=== PATIENT | female | born 1940 | race Caucasian/White ===

== ENCOUNTER 2018-07-12 04:21 | Inpatient (IN) ==
[2018-07-12] MEDS ORDERED: MORPHINE IV ONE (05:44)
[2018-07-12] MEDS ORDERED: NS IV ONE (05:44)
[2018-07-12] MEDS ORDERED: ZOVIRAX IV ONE (05:44)
--- NOTE | 2018-07-12 05:50 | PROVIDER DOCUMENTATION ---
HPI-General Adult - General Chief Complaint: Generalized Pain Stated Complaint: right side pain Time Seen by Provider: 07/12/18 04:49 Source: patient Allergies/Adverse Reactions: Patient Allergies Allergy/AdvReac Type Severity Reaction Status Date / Time Sulfa (Sulfonamide Allergy Unknown Unknown Verified 03/25/15 15:25 Antibiotics) Home Medications: Home Medication List Medication Instructions Recorded Confirmed Last Taken Type Aspirin 2 tab PO DAILY 07/12/18 07/12/18 Unknown History Cholecalciferol (Vitamin D3) 1 tab PO DAILY 07/12/18 07/12/18 Unknown History [Vitamin D3] Cranberry 1 tab PO DAILY 07/12/18 07/12/18 Unknown History Magnesium 1 tab PO DAILY 07/12/18 07/12/18 Unknown History Melatonin 0.5 - 1 tab PO QHS 07/12/18 07/12/18 Unknown History Methocarbamol [Robaxin] 500 mg PO Q4H 07/12/18 07/12/18 Unknown History Morphine E.r. [Ms Contin] 15 mg PO PRN PRN 07/12/18 07/12/18 Unknown History Nabumetone [Relafen] 500 mg PO Q4H 07/12/18 07/12/18 Unknown History Triamcinolone Acetonide [Nasal 1 spray INH PRN PRN 07/12/18 07/12/18 Unknown History Allergy] Vitamin E 1 tab PO DAILY 07/12/18 07/12/18 Unknown History - History of Present Illness -Gen Adult Nature of Presenting Problems: Pt presents with rash, right flank, x 1 month, radiation to the back, associated with blisters, sharp pain, pt also has chronic pain, back and left shoulder, pt lives alone, according to the son in law pt is no longer able to ambulate and has been dragging herself on the ground, pt denies f/c, kam, cp, sob , cough, ap, n/v/d. Pt is lying in bed in no acute distress. Location of Pain/Injury: reports: abdomen Pain Radiation: reports: back Quality of Pain: reports: sharp Severity: reports: moderate Onset/Duration: reports: other (1 month) Timing: reports: still present Context/Activities at Onset: reports: none Modifying Factors: improves with: nothing Associated Symptoms: reports: denies symptoms Similar Symptoms Previously?: No Recently seen or treated by another doctor?: No Review of Systems - Adult - REVIEW OF SYSTEMS - ADULT Constitutional: reports: no symptoms reported Eyes: reports: no symptoms reported Ears, Nose, Mouth & Throat: reports: no symptoms reported Cardiovascular: reports: no symptoms reported Respiratory: reports: no symptoms reported Gastrointestinal: reports: no symptoms reported Genitourinary: reports: no symptoms reported Musculoskeletal: reports: no symptoms reported Integumentary: reports: see HPI Neurological: reports: no symptoms reported Psychiatric: reports: no symptoms reported Endocrine: reports: no symptoms reported Hematologic/Lymphatic: reports: no symptoms reported Allergic/Immunologic: reports: no symptoms reported All Other Systems: Reviewed and Negative Past History - Adult - PAST MEDICAL HISTORY-ADULT Review of Records: reports: Old Records Reviewed, Nursing Assessment Review, Medications Reviewed, Social history reviewed & non-contributory. Physical Exam-General - PHYSICAL EXAM-ADULT Initial Vital Signs Reviewed: Yes - CONSTITUTIONAL General Appearance: appears well - EYES Eyes: PERRL/EOMI - HEAD, EARS, NOSE, MOUTH & THROAT HENMT: normocephalic/atraumatic - NECK Neck: normal inspection - RESPIRATORY Respiratory: no respiratory distress, no accessory muscle use - CARDIOVASCULAR Cardiovascular: regular rate, rhythm - GASTROINTESTINAL (ABDOMEN) Abdominal Exam: normal bowel sounds - LYMPHATIC Lymphatic: no adenopathy - MUSCULOSKELETAL Extremity: normal range of motion - SKIN Integumentary: zoster-like rash (right flank, with cellulitis) - NEUROLOGIC Neurologic: floor installer II-XII nml as tested - PSYCHIATRIC Psych/Mental Status: normal mood/affect Progress - PLAN OF CARE/RESULTS Progress/Plan/Lab Results: Vital Signs - 8 hr 07/12/18 04:32 07/12/18 04:33 07/12/18 04:49 Temperature 98.5 F Pulse Rate 91 H 82 Respiratory Rate 11 L 18 Blood Pressure 155/83 155/83 O2 Sat by Pulse Oximetry 87 L 90 L 93 L Orders Category Date Time Status cxr [CHEST-1 VIEW] [RAD] Stat Exams 07/12/18 05:44 Ordered BLOOD CULTURE [BLDCUL] Stat Lab 07/12/18 05:41 Uncollected CBC WITH ELECTRONIC DIFF [HEME] Stat Lab 07/12/18 05:41 Uncollected CK TOTAL [CHEM] Stat Lab 07/12/18 05:41 Uncollected COMPREHENSIVE METABOLIC PANEL [CHEM] Stat Lab 07/12/18 05:41 Uncollected PRO B-NATRIURETIC PEPTIDE Stat Lab 07/12/18 05:41 Uncollected TROPONIN T Stat Lab 07/12/18 05:41 Uncollected UA [URINALYSIS] [URINALYSIS] Stat Lab 07/12/18 05:41 Uncollected Acyclovir [Zovirax] 800 mg Med 07/12/18 05:44 Ordered 0.9% Sodium Chloride Inj [Ns] 150 ml IV NOW Morphine Med 07/12/18 05:44 Once 4 mg IV NOW ONE Result Diagrams: 07/12/18 05:20 07/12/18 05:20 - REASSESSMENT Reassessment #1 Time Reassessed: 07:00 Status: other (Assumed care of this patient at shift change from Dr. Oliva. Labs and dispo pending at this time.) - CONSULTS/PCP/HOSPITALIST Notification #1 *Consult/PCP/Hospitalist*: Dr. Estes Time Discussed: 08:46 Consult Disposition: Admit - CHANGE OF SHIFT REPORT (ED Provider) 1 Report Given and Care Transferred to:: Dr. Oconnor Time of Transfer: 07:00 Departure - Departure Date of Disposition Decision: 07/12/18 Time of Disposition Decision: 08:46 DIAGNOSIS: Shingles outbreak Qualifiers: Herpes zoster complications: unspecified herpes zoster complication Qualified Code(s): B02.8 - Zoster with other complications Cellulitis Qualifiers: Site of cellulitis: trunk Site of cellulitis of trunk: unspecified site Qualified Code(s): L03.319 - Cellulitis of trunk, unspecified Disposition: ADMITTED INPATIENT 09 Certified Medical Emergency: Emergent Condition: Stable Referrals and Follow-Ups: None,PCP [NON-STAFF PROVIDER] - - Critical Care Note This patient required my direct & personal management of CC.: No Attestation - Physician/ PATRICIA Attestation Patient care was provided by Advanced Practice Provider:: No The physician spent face to face time with patient:: Yes Advanced Practice Provider documentation review:: Supervising physician onsite and consulted in the evaluation and care of this patient. The physician did have a face to face encounter with the patient.
[2018-07-12 06:05] LABS: BASO# 0.06 X1000 (0.0-0.2); BASO% 1.1 % (0.0-0.8); EOS# 0.14 X1000 (0.0-0.7); EOS% 2.6 % (0.0-10.0); HEMATOCRIT 48.8 % (37.0-47.0); HEMOGLOBIN 15.4 g/dL (12.0-16.0); LYMPH# 0.78 X1000 (1.2-3.4); LYMPH% 14.2 % (20.5-51.1); MCH 28.2 PG (27-31); MCHC 31.6 g/dL (33-37); MCV 89.4 FL (81-99); MONO% 12.8 % (1.7-9.3); MPV 11.2 FL (7.4-10.4); NEUT# 3.81 X1000 (1.4-6.5); NEUT% 69.3 % (42.2-75.2); PLT 216 X1000 (130-400); RBC 5.46 XMIL (4.2-5.4); RDW 15.1 % (11.5-14.5); WBC 5.49 X1000 (4.8-10.8)
[2018-07-12] MEDS ORDERED: VANCOMYCIN 1 GM/NS 1 GM/250 ML IVPB IV ONE (06:33)
[2018-07-12 06:47] LABS: ALB/GLOB RATIO 0.9; ALBUMIN 3.4 g/dL (3.5-5.0); CALCIUM 9.3 mg/dL (8.8-10.2); POTASSIUM 4.1 mmol/L (3.5-5.1); TOTAL BILIRUBIN 0.33 mg/dL (0.20-1.00); TOTAL PROTEIN 7.2 g/dL (6.3-8.3)
--- NOTE | 2018-07-12 07:40 | Diag Imaging Result Doc PS360 ---
EXAM: CHEST-1 VIEW INDICATION: chest pain TECHNIQUE: One view COMPARISON: 03/25/2015 FINDINGS: Inspiration is suboptimal. There is suggestion of mild subsegmental atelectasis at the lung bases. Central vasculature appears mildly prominent suggesting minimal pulmonary venous congestion. The lungs are grossly clear, otherwise. There is no discrete pleural fluid collection or pneumothorax. The cardiac silhouette is unremarkable. IMPRESSION: Suggestion of mild pulmonary venous congestion. Electronically signed by Ankit Guerrero 07/12/2018 7:37 AM
[2018-07-12] MEDS ORDERED: MORPHINE IM ONE (07:55)
[2018-07-12] MEDS ORDERED: LASIX IV ONE ×2 (08:51→08:52)
[2018-07-12] MEDS ORDERED: DILAUDID IV ONE (09:30)
[2018-07-12] MEDS ORDERED: VANCOMYCIN IV PER PHARMACY MISC SCH (09:30)
[2018-07-12] MEDS ORDERED: XYLOCAINE 5% OINT TOP ONE (09:35)
[2018-07-12] MEDS ORDERED: TYLENOL PO PRN (09:42)
[2018-07-12] MEDS ORDERED: ZOFRAN IV PRN (09:42)
[2018-07-12] MEDS ORDERED: FLONASE NAS PRN (09:47)
[2018-07-12] MEDS: PREDNISONE PO SCH (11:55)
[2018-07-12 13:08] LABS: URINE SOURCE CATH
[2018-07-12 13:16] LABS: BILIRUBIN URINE NEGATIVE (NEGATIVE); BLOOD URINE NEGATIVE (NEGATIVE); COLOR YELLOW; GLUCOSE URINE NEGATIVE (NEGATIVE); KETONE URINE NEGATIVE (NEGATIVE); LEUKOCYTES URINE NEGATIVE (NEGATIVE); NITRITE URINE NEGATIVE (NEGATIVE); PH URINE 6.5; PROTEIN URINE NEGATIVE (NEGATIVE); SP GRAVITY URINE 1.006; TURBIDITY URINE CLEAR (CLEAR); UROBILINOGEN URINE NORMAL (NORMAL)
[2018-07-12 13:17] LABS: UR EPITHELIAL CELLS <10 /HPF (<10); URINE BACTERIA NEGATIVE /HPF; URINE RBC <10 /HPF (<10); URINE WBC <10 /HPF (<10)
[2018-07-12] MEDS: DILAUDID IV PRN ×3 (13:17→22:11)
[2018-07-12] MEDS: NEURONTIN PO SCH ×2 (13:18→18:40)
[2018-07-12] MEDS: MS CONTIN PO PRN (13:18)
[2018-07-12] MEDS: ROBAXIN PO PRN ×3 (13:18→22:10)
[2018-07-12] MEDS ORDERED: KEFLEX PO SCH (13:30)
[2018-07-12] MEDS ORDERED: NS IV SCH (14:00)
[2018-07-12] MEDS ORDERED: ZOVIRAX IV SCH (14:00)
--- NOTE | 2018-07-12 14:12 | HISTORY AND PHYSICAL ---
PRIMARY CARE PHYSICIAN: No one. CHIEF COMPLAINT: Rash on right side of flank area to back all the way to the groin with blisters. HISTORY OF PRESENT ILLNESS: Ms. Candy Lockhart is a 78-year-old female with a medical history of pulmonary emboli in the past which she was on Warfarin for, but she has not had this for a long time, history of right calf wound that was infected at some point, healed up. She denies hypertension or chronic constipation. She has chronic osteoarthritis. She does have chronic pain. Very morbidly obese. Now presents with a 1-month complaint of blisters that follow the pattern of shingles. She states she had the chicken pox back in her third grade year of elementary school. She states that she has been under a lot of stress. Her daughter does help her around the house. She is wheelchair bound essentially. Very, very slow to get around. But she has had these blisters for at least a month. Apparently the daughter has been trying to get her to come and get her some medical assistance, but the patient states that something at home would always come up, and she would not come. Now the pain is so severe, it is almost unbearable. The site is very red and raw, and there are several, several bullae type blisters that are open, some still closed. Very painful. Very weepy. A large area of her back, right flank, all the way down even into the abdominal fold. She states that this has been going on for at least a month. She has had some nausea here and there. Denies any fever. She claims that she has also had like a yeast type rash underneath her folds for a couple of months. Otherwise, she has no other complaints. She is going to be started on treatment for her herpes zoster. We are going to consult Dr. Chua due to the severity of the infection. We will try to culture the wounds. She also appears to have almost a cellulitis in the bilateral lower extremities as well. We will get her a private room for droplet and contact isolation. PAST MEDICAL HISTORY: 1. Chronic back and knee pain which she currently is denying. 2. Denies hypertension. 3. Denies chronic constipation, although these are listed on her old medical record. 4. She does have chronic osteoarthritis. 5. History of pulmonary emboli, was on Coumadin therapy. I am not sure how long she has been off of it but she says for a while. 6. History of right calf lower extremity infection. Apparently it almost required amputation, but antibiotics healed it. It is unknown what kind of infection it may have been or bacteria. 7. GERD. 8. Morbid obesity. PAST SURGICAL HISTORY: 1. Bilateral knee replacement. 2. LASIK surgery on her eyes. 3. Bilateral tubal ligation. 4. Five back surgeries with rods. SOCIAL HISTORY: Quit smoking 15 years ago, but she had started in her late teens, never more than a half a pack per day. Denies alcohol or illicit drug use. She does live at home alone and is wheelchair bound. Her daughter does help. She does not have any home health or sitters that help her. FAMILY HISTORY: Mother had breast cancer. Father had heart attack. ALLERGIES: Sulfa. HOME MEDICATIONS: 1. Melatonin 0.5 mg to 1 mg p.o. nightly at bedtime. 2. Aspirin 81 mg 2 tablets p.o. daily. 3. Vitamin D3 1000 units p.o. daily. 4. Cranberry supplement 400 mg p.o. daily. 5. Magnesium 30 mg p.o. daily. 6. Robaxin listed as 500 mg p.o. every 4 hours scheduled. It was changed to p.r.n. 7. Morphine extended release or MS Contin 15 mg p.o. daily p.r.n. 8. Relafen 500 mg p.o. every 4 hours, and I changed that to t.i.d. as well. 9. Triamcinolone acetonide nasal allergy medicine nasal p.r.n. 10.Vitamin E 1000 units p.o. daily. REVIEW OF SYSTEMS: A 14-point review of systems are complete, and all are negative except for those mentioned in the above HPI. The pain is just significantly severe with open blisters. She has cloth in between the folds where it has blistered the most. PHYSICAL EXAMINATION: VITAL SIGNS: Temperature 98.5, heart rate 80, respiratory rate 13, blood pressure 146/89, O2 saturation is 92%. GENERAL: Ms. Candy Lockhart is a 78-year-old female. She is in no acute distress. She is able to answer questions appropriately. HEENT: Atraumatic and normocephalic. Pupils are equal, round and reactive to light. Extraocular movements were intact. NECK: Trachea midline. CARDIOVASCULAR: S1, S2. Regular rate and rhythm. No rubs, gallops or murmurs. She has plus 1 lower extremity pitting edema, but she is quite swollen in the lower extremities with old skin, very dry, red. Feet are cool. Trace pulses, bilateral dorsalis pedal pulses, +2 radial pulses. Unable to assess for JVD due to body habitus. Negative for carotid bruits. PULMONARY: Clear to auscultation with bilateral breath sounds. No accessory muscle use or work of breathing noted except for activity. Tolerating nasal cannula. GASTROINTESTINAL: Soft, nontender. Just obese. Nondistended. Positive bowel sounds x4. EXTREMITIES: Decreased range of motion. Decreased strength. All equal. NEUROLOGICAL: Oriented x3. Follows commands. Decrease in strength in the lower extremities. SKIN: Several, several blisters throughout the flank, into the right groin and abdominal folds and into the right back area with open blisters, closed blisters, weeping, red, hot, painful. Also with some yeast type appearance underneath the left side of her breast folds and under folds of her abdomen and groin. She has little healing open wound on the left bradley with red lower extremities that are cool and very dry lower extremities, very thick callus-like skin throughout the lower extremities. DIAGNOSTIC DATA: White blood cells 5000, hemoglobin 15, hematocrit 48, platelet count 216. Sodium is 138, potassium 4.1, BUN is 16, creatinine 1.0, glucose 96, calcium 9.3, bilirubin 0.33, AST is 17, ALT is 9. CK is 35. Troponin less than 0.01. ProBNP is 1605. Albumin 3.4. Serum lactate 0.7. IMAGING: Chest x-ray with suggestion of mild pulmonary venous congestion. ASSESSMENT AND PLAN: 1. Severe shingles along the right flank and into the groin, etc., with several open and closed blisters draining. She is placed on droplet and contact isolation for this. We will start her on weight based prednisone for 5 days, ideal body weight, so it is 60 mg once a day for 5 days along with ideal body weight based acyclovir which is 700 mg every 8 hours for 7 days. Given the severity of it, we will consult Dr. Chua. It does appear that there is a good chance there is a bacterial infection with it as well, so we will start her on vancomycin. We will culture the site. 2. Given that this has been going on for so long likely with postherpetic neuralgia, we will go ahead and do Neurontin 100 mg p.o. t.i.d., lidocaine topical ointment, Dilaudid 0.5 mg IV q.3 hours, the morphine MS Contin 15 mg p.o. daily as needed that she takes at home, and [place] 7.5 one to 2 tablets every 4 hours p.r.n. for pain. 3. Possible lower extremity cellulitis versus chronic inflammation in the lower extremities, but she is going to be on vancomycin. 4. Morbid obesity. 5. Elevated ProBNP with some pulmonary venous congestion on the chest x-ray, so we will get an echocardiogram to evaluate for congestive heart failure and also give her a one-time low dose 20 of Lasix. She does have lower extremity edema as well. 6. Continue with proton pump inhibitor of Prilosec. 7. DVT prophylaxis. Currently she is just on aspirin. We will hold off on anything on the legs. Dictated by JIMI Segundo for Ashkan Estes MD cc: JMII Segundo MD
--- NOTE | 2018-07-12 14:25 | INFECTIOUS DISEASE CONSULT REP ---
DATE: 07/12/2018 CONCLUSION: The patient is admitted to the hospital with shingles and a right-sided abdominal wall dermatome. There may be a secondary bacterial infection. RECOMMENDATIONS: I have substituted p.o. Valtrex for IV acyclovir and p.o. Keflex for IV vancomycin. DISCUSSION: The patient told me that she has been having pain in the right lower abdominal wall dermatome. She did not break out in a rash until approximately 1 to 2 weeks ago. She says that she told me that the rash is very painful. Her laboratory studies show a CBC with a white count of 5490, hemoglobin 15.4 and platelet count 216,000. Creatinine is 1. GFR is 54. Chest x-ray shows pulmonary venous congestion. Blood cultures and culture from the patient's right abdominal wall dermatome are pending. Urinalysis showed no white cells or bacteria. Liver function studies are normal. PAST MEDICAL HISTORY/REVIEW OF SYSTEMS: Eyes and ears: She can hear okay, but she does need glasses for vision. Neck: No stiffness. Respiratory: No cough or shortness of breath. Cardiac: No chest pain or palpitations. GI: No nausea, vomiting, or diarrhea. Genitourinary: No dysuria or flank pain. Endocrine: The patient does not have diabetes or thyroid disease. Neurologic: No seizures. No loss of motor or sensory function. Integument: See present illness. GENERAL CLAIMS AGENT HISTORY: She is a 2, para 2, AB 0. She has had a tubal ligation. PREVIOUS HOSPITALIZATIONS AND OPERATIONS: She has had labor and deliveries, a tubal ligation, laminectomy at which time Lawrence rods were installed, bilateral total knee arthroplasties, and the patient has also had eye surgery. MEDICAL DISEASES: Negative for diabetes mellitus and hypertension. INFECTIOUS DISEASE HISTORY: Positive for UTI. FAMILY HISTORY: Positive for cancer and myocardial infarction. SOCIAL HISTORY: The patient lives in [place]. She is a . She lives alone. The patient does not smoke cigarettes, drink alcoholic beverages or abuse drugs. ALLERGIES: She is allergic to sulfa. HOME MEDICATIONS: Include vitamins, minerals, Robaxin, morphine, Relafen. PHYSICAL EXAMINATION: Vital Signs: Temperature is 97.9 degrees, pulse 97, respirations 20, blood pressure 137/55. Patient is 5 feet 8 inches tall, weighs 291 pounds. General: This is an obese, elderly female. She is having pain in the right abdominal wall dermatome. Head, eyes, ears, nose, and throat: She can hear my spoken words and see near objects. There is no drainage coming from the nose or ears. Neck: No meningismus. Lungs: Clear to auscultation. Cardiovascular: Heart rate is regular. Abdomen: Soft and nontender. Integument: As mentioned above, patient has in the right abdominal wall dermatome an erythematous rash with vesicles and some bullae. Neurologic: Patient is awake. She can move her extremities. There is no tremor. Her sensation is intact to touch. Her memory as regarding her medical history seems intact. Thank you for the consult. cc: Jayden Chua MD
[2018-07-12] MEDS: VALTREX PO SCH ×2 (14:42→22:10)
[2018-07-12] MEDS: KEFLEX PO SCH ×2 (14:42→22:10)
--- NOTE | 2018-07-12 14:44 | PROGRESS NOTE ---
DATE: 07/12/2018 SUBJECTIVE: This is a [id number] encounter. A 78-year-old female admitted to the hospital because of a rash which she has had on her right flank region. She indicates the lesions have been present for close to about 1month. She is afebrile. On examination, She has erythematous lesion left flank with some blistering noted . I do agree with the plan of maintaining patient on anti viral agent. Infectious Disease has been consulted as well. cc: Ashkan Estes MD MTDD
[2018-07-12] MEDS: XYLOCAINE 5% OINT TOP SCH ×2 (17:48→18:40)
[2018-07-12] MEDS: MELATONIN PO SCH (22:10)
[2018-07-13] MEDS: RELAFEN PO SCH ×3 (04:00→23:25)
[2018-07-13] MEDS: ROBAXIN PO PRN ×4 (04:34→18:01)
[2018-07-13] MEDS: VALTREX PO SCH ×4 (04:34→23:25)
[2018-07-13] MEDS: PRILOSEC PO SCH ×2 (04:34→06:10)
[2018-07-13] MEDS: KEFLEX PO SCH ×3 (04:34→14:19)
[2018-07-13] MEDS: DILAUDID IV PRN ×4 (04:35→18:48)
[2018-07-13] MEDS: NORCO-7.5 PO PRN ×4 (06:17→18:00)
--- NOTE | 2018-07-13 07:04 | ECHO REPORT ---
ORDER DATE: 07/12/2018 INDICATIONS: Suspected congestive heart failure. The study is limited due to the patient's poor cooperation. Only parasternal views and subcostal views are available. M-MODE MEASUREMENTS: Left ventricle outflow tract: 2.3 cm. Aortic diameter: 2.9 cm. The wall thickness of the left ventricle cannot really be evaluated adequately. SUMMARY OF 2-DIMENSIONAL IMAGIN. There is no pericardial effusion. 2. The aortic valve opens normally. Color flow mapping unremarkable. 3. The left atrium appears to be mildly enlarged. 4. The mitral valve opens normally. 5. The Doppler evaluation of the mitral valve is very limited. 6. The global left ventricular systolic function is probably normal. Ejection fraction is estimated to be on the order of 60%-65%, although there was no adequate full evaluation of the wall motion. 7. The pulmonic valve appears to be grossly normal. 8. The tricuspid valve shows mild degree of regurgitation. 9. Pulmonary pressure appears to be elevated at 41 mmHg. 10.There is no evidence of mass. There is no thrombus. SUMMARY: In summary, this limited echocardiogram shows: 1. Probably normal left ventricular systolic function. 2. No evidence of aortic stenosis or any significant degree of mitral regurgitation. 3. Pulmonary pressure estimated at 41 mmHg. 4. No pericardial effusion, mass, and no thrombus. 5. There is no evidence of significant degree of left ventricular hypertrophy. The best measurement of the wall thickness is about 1.2 cm which would be consistent with mild degree of left ventricular hypertrophy. The left atrium appears to be moderately enlarged. Clinical correlation recommended. Please repeat this study when the patient is able to cooperate. cc: MD Shruthi Loera CRNP
[2018-07-13 07:18] LABS: BASO# 0.05 X1000 (0.0-0.2); BASO% 1.1 % (0.0-0.8); EOS# 0.01 X1000 (0.0-0.7); EOS% 0.2 % (0.0-10.0); HEMATOCRIT 48.1 % (37.0-47.0); IMM GRAN# 0.03 X1000 (0.0-0.04); IMM GRAN% 0.6 % (0.0-0.5); LYMPH# 1.06 X1000 (1.2-3.4); LYMPH% 22.8 % (20.5-51.1); MCHC 31.2 g/dL (33-37); MCV 89.9 FL (81-99); MONO# 0.71 X1000 (0.11-0.59); MONO% 15.3 % (1.7-9.3); MPV 11.2 FL (7.4-10.4); NEUT# 2.78 X1000 (1.4-6.5); PLT 182 X1000 (130-400); RBC 5.35 XMIL (4.2-5.4); RDW 15.1 % (11.5-14.5); WBC 4.64 X1000 (4.8-10.8)
[2018-07-13 07:25] LABS: INR 0.99; PROTIME 13.9 Seconds (11.0-16.0)
[2018-07-13 07:26] LABS: PTT 31.3 Seconds (22.3-41.8)
[2018-07-13 07:39] LABS: ALB/GLOB RATIO 0.9; ALBUMIN 3.3 g/dL (3.5-5.0); MAGNESIUM 1.9 mg/dL (1.5-2.7); POTASSIUM 4.2 mmol/L (3.5-5.1); TOTAL BILIRUBIN 0.41 mg/dL (0.20-1.00); TOTAL PROTEIN 6.8 g/dL (6.3-8.3)
[2018-07-13] MEDS: MS CONTIN PO PRN (08:48)
[2018-07-13] MEDS: SLOW-MAG PO SCH (08:49)
[2018-07-13] MEDS: VITAMIN E PO SCH (08:49)
[2018-07-13] MEDS: ASPIRIN PO SCH (08:50)
[2018-07-13] MEDS: VITAMIN D PO SCH (08:50)
[2018-07-13] MEDS: PREDNISONE PO SCH (08:50)
[2018-07-13] MEDS: PATIENT'S OWN MED PO SCH (08:51)
[2018-07-13] MEDS: XYLOCAINE 5% OINT TOP SCH ×3 (08:51→18:02)
[2018-07-13] MEDS: NEURONTIN PO SCH ×3 (08:51→18:01)
--- NOTE | 2018-07-13 17:25 | INFECTIOUS DISEASE PROGRESS NO ---
DATE: 07/13/2018 PRESENT ILLNESS: The patient has shingles involving the right-sided abdominal wall. It is complicated by infection with a gram-negative vaughn bacterial organism. MEDICATIONS: Currently, the patient is on Valtrex and Keflex. PHYSICAL EXAMINATION: Vital Signs: Temperature is 97.8, pulse 87, respirations 12, blood pressure 150/65. Generally: This is an ill-appearing elderly female. She is in no acute distress. HEENT: She can hear my spoken words and see near objects. She does not have any white patches on her tongue. Lungs: Clear to auscultation. Cardiovascular: Regular heart rate. Abdomen: Soft and not tender on the lateral abdominal wall dermatome. There is erythema in a dermatome distribution with vesicles. Neurologic: Patient is awake. She can move her extremities. There is no tremor. LAB AND X-RAY: There is no new radiographic study today. The CBC for today shows a white count of 4640, hemoglobin 15, platelet count of 182,000. Creatinine is 1, GFR is 54. Liver function studies are normal. Urinalysis shows no white cells or bacteria. Abdominal culture is growing a gram-negative vaughn. ASSESSMENT AND PLAN: Patient has shingles complicated by a gram-negative vaughn bacterial super infection. My plan is to continue Valtrex and I have substituted Levaquin for Keflex. COMORBIDITIES: She is elderly. Also, she is obese. cc: Jayden Chua MD
[2018-07-13] MEDS: LEVAQUIN PO SCH (18:01)
--- NOTE | 2018-07-13 19:02 | PROGRESS NOTE ---
DATE: 07/13/2018 SUBJECTIVE: Patient resting comfortable in bed. She feels much better today. OBJECTIVE: Vital signs: Temperature 97.8 degrees, pulse 87, blood pressure 150/65, oxygen saturation is 92%. HEENT: Atraumatic, normocephalic. Cardiovascular: S1, S2. Respiratory: Has evidence of good entry bilaterally. Abdomen: Soft, nontender. She does have an area of erythema as well as blister formation over a dermatome on the right lower aspect of the abdomen as well as the right flank region. Extremities: Has evidence of edema. CENTRAL NERVOUS SYSTEM: No obvious focal deficit noted. LABS: WBC is 4.64, hematocrit is 48.1 with a platelet count of 182,000, sodium is 139, potassium 4.2, chloride is 103, bicarb 23, BUN 16, creatinine is 1.0. ASSESSMENT AND PLAN: 1. Herpes zoster infection. Continue Valtrex. Note optimize pain control. 2. Possible lower extremity cellulitis. Continue antibiotics. 3. Morbid obesity. Patient will need to be on a low calorie diet. 4. Acute diastolic heart failure. Monitor I's and O's as well as daily weights, maintain patient on diuretics. 5. Gastrointestinal prophylaxis PPI. 6. Deep vein thrombosis prophylaxis Lovenox. cc: Ashkan Estes MD
[2018-07-13] MEDS: MELATONIN PO SCH (23:24)
[2018-07-14] MEDS: VALTREX PO SCH ×3 (06:31→22:10)
[2018-07-14] MEDS: PRILOSEC PO SCH (06:31)
[2018-07-14] MEDS: NORCO-7.5 PO PRN (07:15)
[2018-07-14 07:42] LABS: ALBUMIN 3.3 g/dL (3.5-5.0); CALCIUM 8.5 mg/dL (8.8-10.2); TOTAL BILIRUBIN 0.36 mg/dL (0.20-1.00); TOTAL PROTEIN 6.7 g/dL (6.3-8.3)
[2018-07-14] MEDS: LEVAQUIN PO SCH (09:42)
[2018-07-14] MEDS: LASIX IV SCH (09:42)
[2018-07-14] MEDS: PREDNISONE PO SCH (09:42)
[2018-07-14] MEDS: LOVENOX SUBQ SCH (09:42)
[2018-07-14] MEDS: VITAMIN D PO SCH (09:43)
[2018-07-14] MEDS: ASPIRIN PO SCH (09:43)
[2018-07-14] MEDS: SLOW-MAG PO SCH (09:44)
[2018-07-14] MEDS: NEURONTIN PO SCH ×3 (09:44→22:11)
[2018-07-14] MEDS: PATIENT'S OWN MED PO SCH (09:51)
[2018-07-14] MEDS: DILAUDID IV PRN ×3 (10:07→22:13)
[2018-07-14] MEDS: RELAFEN PO SCH ×2 (10:08→22:14)
[2018-07-14] MEDS: XYLOCAINE 5% OINT TOP SCH ×3 (10:08→22:19)
--- NOTE | 2018-07-14 11:39 | PROGRESS NOTE ---
DATE: 07/14/2018 SUBJECTIVE: Patient resting comfortably in bed. She is feeling a little bit better, but she is complaining of shortness of breath. The pain is controlled. We will continue with the same management. OBJECTIVE: Vital Signs: Temperature 98.9 degrees, pulse 72, respiratory rate 18, blood pressure 121/72, oxygen saturation 96% on 2 L of nasal cannula. HEENT: Head normocephalic. No trauma. PERRLA. Neck: Supple. No JVD. No masses. Central trachea. Chest: Clear to auscultation. No wheezing. No rales. Abdomen: Soft. She does have an area with erythema, blister over a large dermatome on the right side that travels from the anterior abdomen abdominal area all the way to her back. It is painful to palpation and mobilization. Neurological examination: Alert and oriented x3. She does have some lower extremity weakness. Extremities: She has edema and chronic venous stasis at the level of the lower extremities. I do not think this is an infection. LABORATORY: Sodium 141, potassium 4, chloride 105, bicarbonate 25. BUN 21, creatinine 1, glucose 86, calcium 8.5. AST 25, ALT 10, alkaline phosphatase 70, albumin 3.3. ASSESSMENT AND PLAN: 1. Herpes zoster infection/single complicated by gram-negative vaughn bacterial superinfection. Infectious Disease Department on board. We will continue with the same management. She is feeling better. We will continue with the same pain treatment as well. 2. Likely acute diastolic heart failure. We will monitor her ins and outs. Kidney function is stable. Negative urine output of 3 L. Will continue with same management. 3. Morbid obesity. Continue with same management for now. Diet and exercise has been discussed. 4. Gastrointestinal prophylaxis with proton pump inhibitors. 5. Deep vein thrombosis prophylaxis with Lovenox. 6. Possible history of pulmonary embolism before. Apparently she has been on blood thinners some time ago, and they were stopped, and she has been placed on aspirin two tablets daily. For now, we will continue with Lovenox and will monitor. 7. Resuscitation status: This patient is full code. cc: Junito Cee MD
[2018-07-14] MEDS: VITAMIN E PO SCH (13:05)
[2018-07-14] MEDS: MS CONTIN PO PRN (13:05)
--- NOTE | 2018-07-14 14:36 | INFECTIOUS DISEASE PROGRESS NO ---
DATE: 07/14/2018 PRESENT ILLNESS: Ms Lockhart is being treated for a right-sided abdominal dermatome shingles with a superimposed Enterobacter infection. MEDICATIONS: She is receiving Levaquin 500 mg by mouth daily and Valtrex 1000 mg by mouth every 8 hours. PHYSICAL EXAMINATION: Vital Signs: Temperature is 98.9 degrees, pulse rate 72 , respiratory rate 18, blood pressure 121/72, O2 saturation is 96% on 2 L nasal cannula. General: This is an elderly, chronically ill-appearing, morbidly obese female. She is sitting up in bed with mild shortness of breath while talking. Cardiovascular: Heart rate and rhythm regular. NSR on the monitor. Respiratory: Lung sounds are clear to auscultation, diminished in the bases. Abdomen: Soft, obese and tender to the right lateral side in the area of the rash. Bowel sounds are active. Integumentary: There is erythema as well as vesicles to the right, lower, lateral abdominal dermatome. Neurologic : She is awake, alert and oriented. Very talkative and weak with minimal movement to the lower extremities and stronger in the upper extremities bilaterally. LABORATORY AND X-RAY: No CBC today. Her creatinine is 1, GFR 54, total bilirubin 0.36, AST 25, ALT 10, alkaline phosphatase 70. Her abdominal dermatome has grown Enterobacter cloacae complex. Blood cultures have shown no growth for 48 hours. No imaging reports today. ASSESSMENT AND PLAN: Ms Lockhart is being treated for shingles that have been complicated by an Enterobacter superinfection. The plan at this point is to continue the Valtrex and Levaquin as ordered. These plans have been discussed with and recommended by Dr. Chua. COMORBIDITIES: She is elderly and morbidly obese with gastroesophageal reflux disease and osteoarthritis. Dictated by JIMI Garcia for Jayden Chua MD This chart was documented by, JIMI Garcia and accurately reflects the services performed, treatment plan and medical decisions as attested by the providers signature Jayden Chua MD. cc: Jayden Chua MD [facility]
[2018-07-14] MEDS: MELATONIN PO SCH (22:11)
[2018-07-15] MEDS: PRILOSEC PO SCH ×2 (06:27→07:37)
[2018-07-15] MEDS: NORCO-7.5 PO PRN ×2 (06:27→12:53)
[2018-07-15] MEDS: VALTREX PO SCH ×3 (06:27→21:32)
[2018-07-15 07:03] LABS: BASO# 0.01 X1000 (0.0-0.2); BASO% 0.2 % (0.0-0.8); EOS# 0.01 X1000 (0.0-0.7); EOS% 0.2 % (0.0-10.0); HEMOGLOBIN 14.9 g/dL (12.0-16.0); LYMPH# 1.49 X1000 (1.2-3.4); LYMPH% 23.9 % (20.5-51.1); MCHC 31.7 g/dL (33-37); MCV 88.2 FL (81-99); MONO# 0.85 X1000 (0.11-0.59); MONO% 13.6 % (1.7-9.3); MPV 10.9 FL (7.4-10.4); NEUT# 3.87 X1000 (1.4-6.5); NEUT% 62.1 % (42.2-75.2); PLT 222 X1000 (130-400); RBC 5.33 XMIL (4.2-5.4); WBC 6.23 X1000 (4.8-10.8)
[2018-07-15 07:30] LABS: ALB/GLOB RATIO 0.9; ALBUMIN 3.3 g/dL (3.5-5.0); CALCIUM 8.7 mg/dL (8.8-10.2); POTASSIUM 3.8 mmol/L (3.5-5.1); TOTAL BILIRUBIN 0.41 mg/dL (0.20-1.00); TOTAL PROTEIN 6.8 g/dL (6.3-8.3)
[2018-07-15] MEDS: LASIX IV SCH (09:44)
[2018-07-15] MEDS: VITAMIN D PO SCH (09:44)
[2018-07-15] MEDS: SLOW-MAG PO SCH (09:45)
[2018-07-15] MEDS: ASPIRIN PO SCH (09:45)
[2018-07-15] MEDS: RELAFEN PO SCH ×2 (09:45→21:32)
[2018-07-15] MEDS: LEVAQUIN PO SCH (09:45)
[2018-07-15] MEDS: PREDNISONE PO SCH (09:45)
[2018-07-15] MEDS: VITAMIN E PO SCH (09:45)
[2018-07-15] MEDS: XYLOCAINE 5% OINT TOP SCH ×3 (09:46→21:33)
[2018-07-15] MEDS: PATIENT'S OWN MED PO SCH (09:46)
[2018-07-15] MEDS: NEURONTIN PO SCH ×3 (09:48→16:18)
[2018-07-15] MEDS: LOVENOX SUBQ SCH (09:48)
[2018-07-15] MEDS: ROBAXIN PO PRN (10:13)
[2018-07-15] MEDS: MS CONTIN PO PRN (10:13)
--- NOTE | 2018-07-15 11:53 | PROGRESS NOTE ---
DATE: 07/15/2018 SUBJECTIVE: This patient is resting comfortably in bed. She is feeling better but she feels a little bit short of breath. She is still complaining of some pain on her back. We will continue with the same management. OBJECTIVE: Vital Signs: Temperature 99 degrees, pulse 76, respiratory rate 14, blood pressure 154/76, oxygen saturation 96 on 3 L of nasal cannula. HEENT: Head normocephalic. No trauma. PERRLA. Neck: Supple. No JVD. No masses. Central trachea. Chest: Clear to auscultation. No wheezing. No rales. Abdomen: Soft. She has an area with erythema, blister over the large dermatome on the right side that travels from the anterior abdominal area all the way to her back. It is painful to palpation and mobilization. Neurological Examination: The patient is alert. She is oriented x3. She does have lower extremity weakness, fluid overload with anasarca. Extremities: There is 3+ lower extremity edema. I do not think she has an infection. Laboratory: WBC 6.2, hemoglobin 14.9, hematocrit 47, platelets 222,000. Sodium 140, potassium 3.8, chloride 104, bicarbonate 23, BUN 25, creatinine 1, glucose 97, calcium 8.7, albumin 3.3. ASSESSMENT AND PLAN: 1. Shingles, complicated with Enterobacter cloacae complex infection. Infectious disease department following this patient. I will continue following their recommendations. 2. Likely acute diastolic heart failure. We will monitor her ins, outs, and kidney function, so far stable. Negative urine output of 6.6 L. We will continue with the same management. 3. Morbid obesity. Continue with the same management for now. Diet and exercise have been discussed. 4. Gastrointestinal prophylaxis. Continue with proton pump inhibitors. 5. Deep vein thrombosis prophylaxis with Lovenox. 6. Possible history of pulmonary embolism before. Apparently, she had been on blood thinners some time ago and they were stopped. Apparently, she has been placed on aspirin 2 tablets daily. For now, we will continue with Lovenox and we will monitor. 7. Resuscitation status. This patient is a Full Code. 8. Medical noncompliance. I had a conversation with the son-in-law who is at the bedside. As per the family member, she does not have a primary doctor but every time he finds an appointment for her, she makes excuses and she does not go. She used to take Lasix a long time ago and she stopped it. As per the patient, she ran out of the medication. She is not able to walk and she uses a wheelchair at home. I have requested physical therapy and occupational therapy for this patient. I will talk to her about sending her to a rehab center but I believe she is going to say no. cc: Junito Cee MD
--- NOTE | 2018-07-15 15:10 | INFECTIOUS DISEASE PROGRESS NO ---
DATE: 07/15/2018 PRESENT ILLNESS: Ms. Carty has shingles to the right lateral abdominal dermatome, that has developed a superimposed Enterobacter infection. MEDICATIONS: She is receiving Levaquin 500 mg by mouth daily and Valtrex 1000 mg by mouth every 8 hours. PHYSICAL EXAMINATION: Vital Signs: Temperature is 97.8 degrees, pulse rate 93 , respiratory rate 18, blood pressure 154/71, O2 saturation 95% on 3 L nasal cannula. General: This is an elderly, chronically ill-appearing, morbidly obese female. She is lying in bed, currently in no acute distress. HEENT: Atraumatic, normocephalic. Oral mucous membranes are pink and moist. Conjunctivae are pink. Neck: Supple. Trachea is midline. Cardiovascular: Heart rate and rhythm are regular. Normal sinus rhythm on the monitor. Respiratory: Lung sounds are clear to auscultation. Diminished in the bases. Abdomen: Soft, obese and tender to the right lateral side to the area of the shingles rash. Bowel sounds are active. Integumentary : There is erythema as well as some popped and some intact vesicles to the right lower lateral abdominal dermatome. The areas are worsened underneath her fat folds. Neurologic: She is awake, alert, and oriented. Able to move upper extremities without difficulty. Lower extremities are extremely weak. LABORATORY AND X-RAY: Today her white count is 6.23, hemoglobin 14.9, platelet count 222,000. Creatinine is 1, GFR 54. Total bilirubin 0.41, AST 23, ALT 12. Alkaline phosphatase 69. Her abdominal wound has grown Enterococcus cloacae complex. No imaging reports today. ASSESSMENT AND PLAN: Ms. Carty is being treated for shingles complicated by an Enterobacter superinfection. At this point, she is receiving Valtrex and Levaquin which we will continue. She is complaining about not being able to go home. I have talked to her about how it would be great if she could walk before going home and that rehab would be advantageous to her. She agrees with that. She has been very noncompliant in the past and currently does not have a primary care physician. These plans have been discussed with and recommended by Dr. Chua. COMORBIDITIES: For Ms. Carty include that she is elderly and morbidly obese with gastroesophageal reflux disease and osteoarthritis. Dictated by JIMI Garcia for Jayden Chua MD This chart was documented by, JIMI Garcia and accurately reflects the services performed, treatment plan and medical decisions as attested by the providers signature Jayden Chua MD. cc: Jayden Chua MD [facility]
[2018-07-15] MEDS: MELATONIN PO SCH (21:32)
[2018-07-16] MEDS: ROBAXIN PO PRN ×2 (00:22→10:20)
[2018-07-16] MEDS: VALTREX PO SCH ×3 (06:28→21:14)
[2018-07-16 08:00] LABS: ALBUMIN 3.3 g/dL (3.5-5.0); CALCIUM 7.7 mg/dL (8.8-10.2); POTASSIUM 3.6 mmol/L (3.5-5.1); TOTAL BILIRUBIN 0.37 mg/dL (0.20-1.00); TOTAL PROTEIN 6.6 g/dL (6.3-8.3)
[2018-07-16] MEDS: VITAMIN D PO SCH (10:20)
[2018-07-16] MEDS: SLOW-MAG PO SCH (10:20)
[2018-07-16] MEDS: PREDNISONE PO SCH (10:21)
[2018-07-16] MEDS: RELAFEN PO SCH ×2 (10:21→20:37)
[2018-07-16] MEDS: VITAMIN E PO SCH (10:21)
[2018-07-16] MEDS: ASPIRIN PO SCH (10:21)
[2018-07-16] MEDS: LEVAQUIN PO SCH (10:21)
[2018-07-16] MEDS: NEURONTIN PO SCH ×3 (10:21→17:56)
[2018-07-16] MEDS: LOVENOX SUBQ SCH (10:22)
[2018-07-16] MEDS: LASIX IV SCH (10:22)
[2018-07-16] MEDS: XYLOCAINE 5% OINT TOP SCH ×3 (10:22→20:36)
[2018-07-16] MEDS: PATIENT'S OWN MED PO SCH (10:22)
[2018-07-16] MEDS: DILAUDID IV PRN ×4 (10:30→21:14)
--- NOTE | 2018-07-16 12:03 | PROGRESS NOTE ---
DATE: 07/16/2018 SUBJECTIVE: This patient is resting comfortably in bed. At this moment, she is not complaining of chest pain, but she was complaining of chest pain during the during the night, as per the patient, the whole night. We will continue with the same management. I will stop the IV Lasix, and I will put her on p.o. Lasix 40 mg daily. I will get a new chest x-ray in the morning. BUN increased a little bit compared with yesterday. Creatinine about the same. We have a good urine output, and we have a negative balance of 9.5 L so far. OBJECTIVE: HEENT: Head normocephalic, no trauma. PERRLA. Neck: Supple. No JVD. No masses. Central trachea. Chest: Clear to auscultation. Some crepitus at the bases. Abdomen: Soft. She has a large area with erythema blister over a dermatome on the right side that travels from the anterior abdominal area all the way to her back. It is painful to palpation and mobilization, and it is really erythematous. Fluid overload with anasarca. Neurological: This patient is alert. She is oriented x3. She does have lower extremity weakness. Extremities: 3+ lower extremity edema and with venous stasis changes. I do not think she has an infection at the level of the lower extremities. LABORATORY: Sodium 138, potassium 3.6, chloride 103, bicarbonate 23, BUN 29, creatinine 1, glucose 89, calcium 7.7, AST 24, ALT 12, alkaline phosphatase 61, albumin 3.3. ASSESSMENT AND PLAN: 1. Shingles, complicated with Enterobacter cloacae complex infection. We will continue with the same treatment. Infectious Disease department on board. 2. Likely acute diastolic heart failure. We are still monitoring her intake and output. Kidney function is stable. We have a negative output of 9.5 L so far. We will continue with the same management, except that I will switch the treatment from IV to p.o. Let us see how she does. She is breathing better. 3. Morbid obesity. Continue with same management for now. Diet and exercise have been discussed. 4. Gastrointestinal (GI) prophylaxis with proton pump inhibitors (PPIs). 5. Deep vein thrombosis (DVT) prophylaxis with Lovenox. 6. Possible history of pulmonary embolism in the past. Apparently, she has been on blood thinners before some time ago. They were stopped. Apparently, she has been placed on aspirin 2 tablets daily. For now, we will continue with Lovenox, and we will monitor. 7. Resuscitation status. This patient is a full code. 8. Medical noncompliance. I had a conversation with the son-in-law yesterday at the bedside. As per the patient's family, she does not have a primary care doctor, but every time they find a doctor for her, she makes excuses, and she does not go. As per the patient, she used to take Lasix some time ago, but she stopped it because she ran out of the medication. 9. It looks like she is not able to walk at home, and she uses a wheelchair at home. Continue physical therapy and occupational therapy. I talked to the patient about a rehabilitation center, but she declined. cc: Junito Cee MD
[2018-07-16] MEDS: MELATONIN PO SCH (20:36)
[2018-07-17] MEDS: DILAUDID IV PRN ×6 (00:26→21:48)
[2018-07-17] MEDS: PRILOSEC PO SCH (06:11)
[2018-07-17] MEDS: NORCO-7.5 PO PRN ×3 (06:11→20:31)
[2018-07-17] MEDS: VALTREX PO SCH ×4 (06:12→21:57)
--- NOTE | 2018-07-17 07:00 | Diag Imaging Result Doc PS360 ---
EXAM: CHEST-PORTABLE HISTORY: dyspnea TECHNIQUE: Portable chest single view COMPARISON: 07/12/2018 FINDINGS: The lungs are well expanded. No cardiomegaly. Mild vascular distention. This is slightly less prominent than on the prior study. Likely atelectasis in the left base. No pleural effusions identified. IMPRESSION: Mild interval improvement. Electronically signed by Samm Anthony 07/17/2018 6:57 AM
[2018-07-17 07:24] LABS: EOS# 0.02 X1000 (0.0-0.7); EOS% 0.3 % (0.0-10.0); HEMATOCRIT 46.2 % (37.0-47.0); HEMOGLOBIN 14.8 g/dL (12.0-16.0); IMM GRAN# 0.02 X1000 (0.0-0.04); IMM GRAN% 0.3 % (0.0-0.5); LYMPH# 1.54 X1000 (1.2-3.4); LYMPH% 26.4 % (20.5-51.1); MCH 28.4 PG (27-31); MCV 88.7 FL (81-99); MONO# 0.75 X1000 (0.11-0.59); MONO% 12.8 % (1.7-9.3); MPV 11.3 FL (7.4-10.4); NEUT# 3.51 X1000 (1.4-6.5); NEUT% 60.2 % (42.2-75.2); PLT 207 X1000 (130-400); RBC 5.21 XMIL (4.2-5.4); RDW 15.1 % (11.5-14.5); WBC 5.84 X1000 (4.8-10.8)
[2018-07-17 07:32] LABS: AGAP 12; ALBUMIN 3.3 g/dL (3.5-5.0); ALKALINE PHOSPHATASE 60 U/L (32-104); BUN 26 mg/dL (8-22); CALCIUM 8.5 mg/dL (8.8-10.2); CHLORIDE 102 mmol/L (98-107); COSMO 281; CREATININE 0.8 mg/dL (0.5-0.9); ESTIMATED GFR > 60; GLUCOSE 107 mg/dL (70-104); GOT 24 U/L (10-30); GPT 17 U/L (10-36); POTASSIUM 3.6 mmol/L (3.5-5.1); SODIUM 138 mmol/L (136-145); TCO2 24 mmol/L (25-35); TOTAL BILIRUBIN 0.48 mg/dL (0.20-1.00); TOTAL PROTEIN 6.6 g/dL (6.3-8.3)
[2018-07-17] MEDS: SLOW-MAG PO SCH (08:18)
[2018-07-17] MEDS: VITAMIN E PO SCH (08:19)
[2018-07-17] MEDS: PREDNISONE PO SCH (08:19)
[2018-07-17] MEDS: NEURONTIN PO SCH ×3 (08:19→18:08)
[2018-07-17] MEDS: LEVAQUIN PO SCH (08:19)
[2018-07-17] MEDS: RELAFEN PO SCH ×2 (08:19→20:31)
[2018-07-17] MEDS: LASIX PO SCH (08:19)
[2018-07-17] MEDS: LOVENOX SUBQ SCH (08:20)
[2018-07-17] MEDS: VITAMIN D PO SCH (08:20)
[2018-07-17] MEDS: PATIENT'S OWN MED PO SCH (08:20)
[2018-07-17] MEDS: ASPIRIN PO SCH (08:20)
[2018-07-17] MEDS: XYLOCAINE 5% OINT TOP SCH ×3 (08:21→18:09)
[2018-07-17] MEDS: ROBAXIN PO PRN (11:47)
--- NOTE | 2018-07-17 11:48 | Diag Imaging Result Doc PS360 ---
EXAM: SHOULDER-LEFT HISTORY: Left shoulder pain TECHNIQUE: Left shoulder two views COMPARISON: None. FINDINGS: No fracture. No dislocation. No separation at the acromioclavicular joint. Marked glenohumeral joint space narrowing with bone spurring. IMPRESSION: Prominent arthritis. Electronically signed by Samm Anthony 07/17/2018 11:46 AM
--- NOTE | 2018-07-17 16:04 | PROGRESS NOTE ---
DATE: 07/17/2018 SUBJECTIVE: This patient is resting in bed, she is complaining of severe pain at the level of the chest on the right side. Also, she was complaining during the night about the same pain. She is still having negative urine balance after changing the IV Lasix to p.o. Lasix; so far 12.3 liters. She is breathing better. OBJECTIVE: Vital Signs: Temperature 98.2 degrees, pulse 73, respiratory rate 14, blood pressure 141/79, oxygen saturation 97% on 2 L of nasal cannula. HEENT: Head normocephalic. No trauma. PERRLA. Neck: Supple. No JVD. Central trachea. Chest: Clear to auscultation. Some crepitus at the bases. Abdomen: Soft. She has a large area with erythema blister over a dermatome on the right side that travels from the anterior abdominal area all the way to her back. It is painful to palpation and mobilization. It is really erythematous with fluid overload and anasarca. Neurological examination: This patient is alert. She is oriented x3. She does have lower extremity weakness. Extremities: 3+ extremity edema with chronic venous stasis changes. I do not think she has an infection at the level of the lower extremities. LABORATORY: WBC 5.8, hemoglobin 14.8, hematocrit 46.2, platelets 207. Sodium 138, potassium 3.6, chloride 102, bicarbonate 24. BUN 26, creatinine 0.8, glucose 107, calcium 8.5, albumin 3.3. ASSESSMENT AND PLAN: 1. Shingles complicated with Enterobacter cloacae complex infection, continue with the same management. Infectious Disease on board. Continue with pain medication. 2. Likely acute diastolic heart failure. So far, 12.3 L of fluid has been removed. Continue with same management. 3. Morbid obesity. Continue with same management. Diet and exercise has been discussed. 4. Gastrointestinal prophylaxis with proton pump inhibitors. 5. Deep vein thrombosis prophylaxis with Lovenox. 6. Possible history of pulmonary embolism in the past. Apparently, she was on blood thinners a long time ago, but they were stopped. Apparently she has been placed on aspirin 2 tablets daily. For now, we will continue with Lovenox and will monitor. 7. Resuscitation status: This patient is full code. 8. Medical noncompliance. I had a long conversation with the son-in-law 2 days ago at the bedside. As per the patient's family, she does not have a primary care, but every time they find a doctor for her she makes excuses and she does not go. As per the patient, she used to take Lasix some time ago, but she stopped because she ran out of the medication. 9. It looks like she is not able to walk at home. She is using an electrical wheelchair at home. Continue physical therapy and occupational therapy. I talked to the patient about rehabilitation, but she refused to go there. cc: Junito Cee MD
--- NOTE | 2018-07-17 16:24 | INFECTIOUS DISEASE PROGRESS NO ---
DATE: 07/17/2018 PRESENT ILLNESS: The patient has shingles on the right lateral abdominal dermatome. She has developed a superimposed Enterobacter infection. MEDICATIONS: The patient is receiving Levaquin 500 mg daily and Valtrex 1000 mg every 8 hours. PHYSICAL EXAMINATION: Vital Signs: Temperature is 98.6 degrees, pulse 70, respirations 18, blood pressure 130/89. General: This is a chronically ill-appearing, elderly female. She is obese. She is in no acute distress. Head, eyes, ears, nose, and throat: She can hear my spoken words and see near objects. There is no white patch on her tongue. Neck: No meningismus. Lungs: Clear to auscultation. Cardiovascular: Regular heart rate. Abdomen: Soft and nontender. The patient on the right abdominal dermatome shows that there are no new lesions but the lesions that are present now have not crusted over yet. There is some mild erythema between the wounds. Neurologic: The patient is awake. She can move her extremities. There is no tremor. LAB AND X-RAY: Chest x-ray shows decreased vascular distention. The patient's creatinine is 0.8. GFR is greater than 60. CBC shows a white count of 5840, hemoglobin 14.8, and platelet count 207,000. ASSESSMENT AND PLAN: Patient has shingles with an Enterobacter superinfection. I plan to continue Valtrex and Levaquin for 10 more days. I have requested that the patient make appointment in my office in 2 weeks. I further told her that if everything has cleared up on her skin that she could cancel the appointment. COMORBIDITIES: The patient is elderly and morbidly obese. She also has gastroesophageal reflux disease and osteoarthritis. cc: Jayden Chua MD
--- NOTE | 2018-07-17 18:13 | CONSULTATION ---
DATE OF CONSULTATION: 07/17/2018 CHIEF COMPLAINT: Left shoulder pain. HISTORY OF PRESENT ILLNESS: Ms Lockhart is a 78-year-old female who has been admitted for shingles and a secondary bacterial infection. During her stay she has been complaining of left shoulder pain. The patient states she has a history of left shoulder pain and loss of range of motion. She has had an injection in her shoulder several years ago that gave her temporary relief. We are asked for further evaluation and treatment. For past medical history, past surgical history, allergies and medications see the admission history and physical. REVIEW OF SYSTEMS: Positive for left shoulder pain, all others negative. PHYSICAL EXAMINATION: General: This is a well developed, well nourished female. She is alert, oriented, and cooperative with the examination. She is in no acute distress. Vital Signs: Stable. She is afebrile. HEENT: Head is normocephalic, atraumatic. Neck: Supple. Respiratory: Her breathing is nonlabored. Abdomen: Nondistended. Neurologic: She discerns soft touch to her left upper extremity. Gross motor function is intact. Musculoskeletal: Left shoulder she has pain with any movement of her left shoulder. She has loss of full forward flexion due to pain and stiffness. IMAGING: X-rays of her left shoulder reveal severe glenohumeral osteoarthritis with [id number] wear. ASSESSMENT: Left shoulder severe osteoarthritis. PLAN: After discussing with the patient treatment options the patient wishes to proceed with a injection. Dr. Maza injected the patient's left shoulder sterilely with a mixture of lidocaine, Marcaine and 80 mg of Depo-Medrol which the patient tolerated well. We will provide her with some home exercises and continue to monitor her. She can follow up with Dr. Maza in the office once she is medically stable. Dictated by DAYLIN Perry for Andre Maza MD cc: DAYLIN Perry MD
[2018-07-17] MEDS: MELATONIN PO SCH (21:48)
[2018-07-18] MEDS: DILAUDID IV PRN ×5 (03:28→22:32)
[2018-07-18] MEDS: NORCO-7.5 PO PRN ×4 (04:48→20:16)
[2018-07-18] MEDS: PRILOSEC PO SCH (06:15)
[2018-07-18] MEDS: VALTREX PO SCH ×3 (06:16→20:17)
[2018-07-18 07:32] LABS: AGAP 14; ALB/GLOB RATIO 0.9; ALBUMIN 3.3 g/dL (3.5-5.0); ALKALINE PHOSPHATASE 62 U/L (32-104); BUN 28 mg/dL (8-22); CALCIUM 8.6 mg/dL (8.8-10.2); CHLORIDE 101 mmol/L (98-107); COSMO 281; CREATININE 0.9 mg/dL (0.5-0.9); ESTIMATED GFR > 60; GLUCOSE 135 mg/dL (70-104); GOT 23 U/L (10-30); GPT 20 U/L (10-36); POTASSIUM 3.6 mmol/L (3.5-5.1); SODIUM 137 mmol/L (136-145); TCO2 22 mmol/L (25-35); TOTAL BILIRUBIN 0.43 mg/dL (0.20-1.00); TOTAL PROTEIN 6.8 g/dL (6.3-8.3)
--- NOTE | 2018-07-18 09:50 | PROGRESS NOTE ---
DATE: 07/18/2018 SUBJECTIVE: The patient is a 78-year-old female who is 1 day status post injection for osteoarthritis of the left glenohumeral joint. She has seen improvement and feels better overall. PHYSICAL EXAMINATION: She is able to weakly elevate her arm. She is able to flex her arm and fingers. IMPRESSION: Left glenohumeral arthritis. PLANS: At this point, the patient has responded with the injection. She was provided with an information booklet regarding some exercises for a home exercise program. We will be available if needed. Patient will follow up in the office once she has improved medically. cc: Andre Maza MD
[2018-07-18] MEDS: XYLOCAINE 5% OINT TOP SCH ×3 (10:13→16:07)
[2018-07-18] MEDS: LOVENOX SUBQ SCH (10:55)
[2018-07-18] MEDS: RELAFEN PO SCH ×2 (10:57→20:16)
[2018-07-18] MEDS: VITAMIN D PO SCH (10:57)
[2018-07-18] MEDS: VITAMIN E PO SCH (10:57)
[2018-07-18] MEDS: ASPIRIN PO SCH (10:57)
[2018-07-18] MEDS: NEURONTIN PO SCH ×3 (10:57→16:06)
[2018-07-18] MEDS: SLOW-MAG PO SCH (10:57)
[2018-07-18] MEDS: LASIX PO SCH (10:58)
[2018-07-18] MEDS: LEVAQUIN PO SCH (11:01)
--- NOTE | 2018-07-18 13:11 | PROGRESS NOTE ---
DATE: 07/18/2018 SUBJECTIVE: The patient is resting in bed, she is complaining of severe back pain, yesterday she was evaluated by Orthopedic Surgery department, they checked the x-ray of the left shoulder and it looks like she has a severe osteoarthritis, she received an intra-articular shot of steroids, today she feels better. OBJECTIVE: Vital Signs: Temperature 98.3 degrees, pulse 72, respiratory rate 18, blood pressure 160/81, oxygen saturation 93 on nasal cannula. HEENT: Head normocephalic. No trauma. PERRLA. Neck: Supple. No JVD. Central trachea. Chest: Clear to auscultation. Some crepitus at the bases. Abdomen: Soft. She has a large area of erythema, blister over a dermatome on the right side that travels from the anterior abdominal area all the way to her back, it is painful to palpation and mobilization, it is erythematous but is getting better, she also has anasarca. Extremities: 3+ lower extremity edema with chronic venous stasis changes. Neurological: Alert and oriented x3. No focal deficits. LABORATORY DATA: Sodium 137, potassium 3.6, chloride 101, bicarbonate 22, BUN 28, creatinine 0.9, glucose 135, calcium 8.6, albumin 3.3. ASSESSMENT AND PLAN: 1. Shingles complicated with Enterobacter cloaca complex infection. Continue with the same management. Infectious Disease on board. Continue with pain medication. 2. Likely acute diastolic heart failure exacerbation, so far 12.8 L of fluid has been removed. We will continue with the same treatment, kidney function has been stable. 3. Morbid obesity. Continue with the same management. Diet and exercise has been discussed. 4. Gastrointestinal prophylaxis with proton pump inhibitors. 5. Deep vein thrombosis prophylaxis with Lovenox. 6. Possible history of pulmonary embolism in the past, apparently she used to be on anticoagulation before but they were stopped, I am not quite sure why the primary care doctor stopped the medication, apparently she has been placed on aspirin 2 tablets daily and for now we will continue with Lovenox and monitor. 7. Resuscitation status patient is full code. 8. Medical noncompliance. I had a large conversation with the son-in-law 3 days ago at the bedside, and then in private. As per the patient's family, she does not have a primary care doctor but every time they find a doctor for her, she makes excuses and she does not want to go. As per the patient, she used to be on Lasix some time ago but she stopped because she ran out of the medication. It looks like she is not able to walk at home but she is using an electrical wheelchair, she does not want to go to a rehab center even though I have been proposing that every single day. I do believe this patient can be discharged in the next 24 to 48 hours. I will discuss the case tomorrow with Infectious Disease department. cc: Junito Cee MD
[2018-07-18] MEDS: PATIENT'S OWN MED PO SCH (14:12)
[2018-07-18] MEDS: MELATONIN PO SCH (20:15)
[2018-07-18] MEDS: ROBAXIN PO PRN (20:23)
[2018-07-18] MEDS: MYCOSTATIN POWDER TOP SCH (22:36)
[2018-07-19] MEDS: DILAUDID IV PRN ×5 (04:15→18:56)
[2018-07-19] MEDS: MS CONTIN PO PRN (04:35)
[2018-07-19] MEDS: VALTREX PO SCH ×3 (04:37→20:19)
[2018-07-19] MEDS: PRILOSEC PO SCH (06:15)
[2018-07-19 08:19] LABS: ALBUMIN 3.4 g/dL (3.5-5.0); CALCIUM 8.6 mg/dL (8.8-10.2); POTASSIUM 4.1 mmol/L (3.5-5.1); TOTAL BILIRUBIN 0.64 mg/dL (0.20-1.00); TOTAL PROTEIN 6.7 g/dL (6.3-8.3)
[2018-07-19] MEDS: ASPIRIN PO SCH (09:20)
[2018-07-19] MEDS: VITAMIN E PO SCH (09:21)
[2018-07-19] MEDS: SLOW-MAG PO SCH (09:21)
[2018-07-19] MEDS: RELAFEN PO SCH ×2 (09:21→20:19)
[2018-07-19] MEDS: LEVAQUIN PO SCH (09:21)
[2018-07-19] MEDS: NEURONTIN PO SCH ×3 (09:21→20:20)
[2018-07-19] MEDS: LASIX PO SCH (09:21)
[2018-07-19] MEDS: VITAMIN D PO SCH (09:21)
[2018-07-19] MEDS: PATIENT'S OWN MED PO SCH (09:21)
[2018-07-19] MEDS: LOVENOX SUBQ SCH (09:22)
[2018-07-19] MEDS: XYLOCAINE 5% OINT TOP SCH ×3 (09:23→20:21)
[2018-07-19] MEDS: MYCOSTATIN POWDER TOP SCH ×2 (09:23→20:21)
[2018-07-19] MEDS: ROBAXIN PO PRN ×2 (10:44→20:20)
--- NOTE | 2018-07-19 17:05 | INFECTIOUS DISEASE PROGRESS NO ---
DATE: 07/19/2018 PRESENT ILLNESS: The patient has shingles complicated by superimposed Enterobacter infection on the right lateral abdominal dermatome. Finally, it seems that some of her lesions are crusting over. MEDICATIONS: The patient has been on for a week Levaquin and Valtrex. PHYSICAL EXAMINATION: Vital Signs: Temperature is 98 degrees, pulse 80, respirations 16, blood pressure 145/76. General: This is a chronically ill, obese, elderly female. She is in no acute distress. Head, eyes, ears, nose, and throat: She can hear my spoken words and see near objects. She does not have any white coating on her tongue. Neck: No stiffness. Lungs: Clear to auscultation. Cardiovascular: Regular heart rate. Integument: The patient's shingles finally appear to be crusting over on the right abdominal wall dermatome. Neurologic: The patient is awake. She can move her extremities. There is no tremor. LABORATORY AND X-RAY: There is no new radiographic study. The creatinine is 1. GFR is greater than 60. CBC shows a white count of 5840, hemoglobin 14.8, and platelet count 207,000. ASSESSMENT AND PLAN: Patient has shingles with a superimposed Enterobacter infection. The patient is going to be going home on a combination of Valtrex and Levaquin. I have requested to have the patient come to my office in 1 week. COMORBIDITIES: The patient is elderly and morbidly obese. She also has gastroesophageal reflux disease and osteoarthritis. cc: Jayden Chua MD
--- NOTE | 2018-07-19 19:11 | DISCHARGE SUMMARY ---
ADMISSION DATE: 07/12/2018 DISCHARGE DATE: DISCHARGE DIAGNOSES: 1. Shingles, complicated with Enterobacter cloacae complex infection. 2. Acute diastolic heart failure exacerbation. 3. Morbid obesity. 4. History of pulmonary embolism in the past. Not on anticoagulation. 5. Medical noncompliance. 6. Morbid obesity with a body mass index of 43.4. PROCEDURES PERFORMED: 1. Chest x-ray dated 07/12/2018. Impression: Mild pulmonary venous congestion. 2. Echocardiogram dated 07/12/2018. Impression: Pulmonary pressure estimated at 41 mmHg. Left ventricular systolic function which is normal. Ejection fraction 60-65%. Mild degree of left ventricular hypertrophy. 3. Shoulder x-ray dated 07/17/2018. Impression: Prominent arthritis. HOSPITAL COURSE: A 78-year-old female with a past medical history of pulmonary embolism in the past which she was on warfarin, but this has been stopped already. Also, history of right calf wound that was infected at some point, but now is completely healed. She denies hypertension or chronic constipation. She has chronic osteoarthritis, chronic pain, morbid obesity. She presented with 1 month complaint of blisters that follow a pattern of shingles. She stated that she had chicken pox back in her 3rd grade year of elementary school. She states that she has been under a lot of stress. Her daughter helps her around the house as well as the son-in-law. She is wheelchair bound essentially and normally she is very slow to get around, but she has been having this blister for a month on the right side. Apparently, her daughter tried to get her to come and get some medical assistance, but as per the patient sometimes at home something would always come up and she would not come. Pain is severe. The lesion in the abdomen that runs all the way to her back he is very red and raw. She has multiple blisters, weepy. There is a large area of her back, right flank all the way down into the abdominal fold with redness. She states that she has been having some nausea. No fever, no chills. Otherwise, no complaints. We noticed that this patient was short of breath. Chest x-ray showed some pulmonary vascular congestion. She does have some pulmonary hypertension by echo and likely diastolic heart failure. Infectious Disease Department evaluated this patient and we started this patient on IV acyclovir and p.o. Keflex. We asked for a culture from her back, her skin that showed Enterobacter cloacae complex. So, Infectious Disease Department started treating this patient with levofloxacin. Also, this patient has been complaining of some severe left shoulder pain. X-ray showed severe arthritis. Orthopedic Surgery evaluated this patient and they infiltrated joint with steroids and anesthesia. As per the patient, that helped a lot. At some point, she was also taking furosemide, but as per the patient she ran out of the medication. I put her back on that medication and around 14 L of fluid was removed. So, I will continue with the same treatment at home. This patient has been feeling better. She is still having some blister, but not as bad as the beginning. She wants to go home. Case has been discussed with Dr. Chua from Infectious Disease Department who recommended to send this patient with Valtrex 1000 mg p.o. q.8 hours and Levaquin 500 mg p.o. daily, and follow up with him in 2 weeks. At the moment of discharge, this patient was in stable medical condition, tolerating p.o. Normally, she does not ambulate. I proposed to her multiple times to send her to a rehab center, but she declined. I had a conversation with her son-in-law a few days ago and he states that this patient is always making excuses to not go to the doctor and that is probably why she does not have a primary care. On the other hand, she is not taking her medications as prescribed. As per the patient, she has been running out of the medications and not able to get them back. Again, patient on stable medical condition, tolerating p.o. Her oxygen was low at room air so we suggested to go home with oxygen. Respiratory therapy will evaluate that possibility. DISCHARGE MEDICATIONS: 1. Valtrex 1000 mg p.o. q.8 hours. 2. Silvasorb topical daily. 3. Relafen 500 mg p.o. q.6 hours. 4. Morphine ER 15 mg p.o. as needed. 5. Robaxin 500 mg p.o. q.8 hours. 6. Melatonin 0.5 to 1 tablet p.o. at bedtime. 7. Magnesium 1 tablet p.o. daily. 8. Lidocaine 5 ointment 1 application over the lesion 3 times a day. 9. Levofloxacin 500 mg p.o. daily. 10. Armstrong 7.5 q.4 hours as needed for pain. 11. Gabapentin 100 mg p.o. t.i.d. 12. Furosemide 40 mg p.o. daily. 13. Flonase 1 spray intranasally daily as needed. 14. Vitamin D3 1 tablet p.o. daily. TIME SPENT: Time discharging this patient 50 minutes. cc: Junito Cee MD
[2018-07-19] MEDS: NORCO-7.5 PO PRN (20:19)
[2018-07-19 20:39] VITALS: BP 171/79
[2018-07-19] MEDS: MELATONIN PO SCH (20:39)
== END 2018-07-19 20:54 | DRG 865 ==
LOC: SUPCPDRO → ED 04:21 → EDIPHOLD 10:02 → SUATTDRO 10:02 → 3N 11:37
PROVIDERS: ATTEND Internal Medicine
CPT/HCPCS: 71010; 71045; 73030; 80053; 81001; 82550; 83605; 83735; 83880; 84484; 85025; 85610; 85730; 87040; 87070; 87077; 87186; 93306; 93308; 94761; 94799; 96365; 96367; 96375; 97110; 97162; 97166; 97530; 97535; 99285; A9270; J0133; J1170; J1650; J1940; J2270; J2405; J3370; J7506; J7512

== ENCOUNTER 2018-08-18 14:40 | Inpatient (IN) ==
--- NOTE | 2018-08-18 16:12 | EKG Report ---
Test Performed on : 08/18/2018 3:48:58 PM Test Reason : cellulitis wound left calf Blood Pressure : / mmHG Vent. Rate : 075 BPM Atrial Rate : 075 BPM P-R Int : 162 ms QRS Dur : 088 ms QT Int : 394 ms P-R-T Axes : 053 -04 -23 degrees QTc Int : 439 ms Normal sinus rhythm. T wave abnormality, consider inferior ischemia Abnormal ECG When compared with ECG of 25-MAR-2015 17:58, Nonspecific T wave abnormality now evident in Lateral leads QT has shortened Confirmed by Scott ESTEBAN, Salomon ([id number]) on 08/19/2018 8:57:11 AM
[2018-08-18 16:41] LABS: BASO# 0.03 X1000 (0.0-0.2); BASO% 0.4 % (0.0-0.8); EOS# 0.23 X1000 (0.0-0.7); EOS% 3.4 % (0.0-10.0); HEMATOCRIT 45.5 % (37.0-47.0); HEMOGLOBIN 14.6 g/dL (12.0-16.0); LYMPH# 1.08 X1000 (1.2-3.4); LYMPH% 15.8 % (20.5-51.1); MCH 29.8 PG (27-31); MCHC 32.1 g/dL (33-37); MCV 92.9 FL (81-99); MONO# 0.83 X1000 (0.11-0.59); MONO% 12.2 % (1.7-9.3); NEUT# 4.66 X1000 (1.4-6.5); NEUT% 68.2 % (42.2-75.2); PLT 168 X1000 (130-400); RDW 18.5 % (11.5-14.5); WBC 6.83 X1000 (4.8-10.8)
[2018-08-18 17:02] LABS: ALB/GLOB RATIO 0.9; ALBUMIN 3.4 g/dL (3.5-5.0); CALCIUM 9.1 mg/dL (8.8-10.2); TOTAL BILIRUBIN 0.54 mg/dL (0.20-1.00)
--- NOTE | 2018-08-18 17:55 | Diag Imaging Result Doc PS360 ---
EXAM: CHEST-PORTABLE HISTORY: cellulitis wound left calf TECHNIQUE: Portable chest single view COMPARISON: 07/17/2018 FINDINGS: The lungs are well expanded. The heart is not enlarged. The vessels are not distended. There are no infiltrates. No effusion identified. IMPRESSION: No pneumonia Electronically signed by Samm Anthony 08/18/2018 5:53 PM
[2018-08-18] MEDS: D5 1/2 NS 1,000 ML IV SCH (18:42)
[2018-08-18] MEDS: ZOSYN 3.375 GM in NS 50 ML IV SCH ×2 (18:42→21:44)
[2018-08-18] MEDS ORDERED: PATIENT'S OWN MED PO PRN (18:47)
[2018-08-18] MEDS: MELATONIN PO SCH (21:44)
[2018-08-18] MEDS: RELAFEN PO SCH (21:44)
[2018-08-18] MEDS: MS CONTIN PO SCH (21:44)
[2018-08-18] MEDS: ROBAXIN PO SCH (21:45)
[2018-08-19] MEDS: ZOSYN 3.375 GM in NS 50 ML IV SCH ×4 (05:46→23:34)
[2018-08-19] MEDS: MS CONTIN PO SCH ×3 (05:46→15:46)
[2018-08-19] MEDS: RELAFEN PO SCH ×3 (06:40→18:22)
[2018-08-19] MEDS: ROBAXIN PO SCH ×3 (06:41→18:22)
[2018-08-19 09:21] LABS: URINE SOURCE CLEAN CATCH
[2018-08-19 09:26] LABS: BILIRUBIN URINE NEGATIVE (NEGATIVE); BLOOD URINE NEGATIVE (NEGATIVE); COLOR YELLOW; GLUCOSE URINE NEGATIVE (NEGATIVE); KETONE URINE TRACE mg/dL (NEGATIVE); LEUKOCYTES URINE LARGE (NEGATIVE); NITRITE URINE NEGATIVE (NEGATIVE); PROTEIN URINE 70 mg/dL (NEGATIVE); SP GRAVITY URINE 1.028; TURBIDITY URINE HAZY (CLEAR); UROBILINOGEN URINE 2 mg/dL (NORMAL)
[2018-08-19 09:37] LABS: UR EPITHELIAL CELLS >10 /HPF (<10); URINE BACTERIA NEGATIVE /HPF; URINE RBC <10 /HPF (<10); URINE WBC TNTC /HPF (<10); URINE YEAST PRESENT
[2018-08-19] MEDS ORDERED: LOVENOX SUBQ SCH (10:00)
[2018-08-19] MEDS: VITAMIN E PO SCH (10:14)
[2018-08-19] MEDS: VITAMIN D PO SCH (10:15)
[2018-08-19] MEDS: NEURONTIN PO SCH ×3 (10:15→17:25)
[2018-08-19] MEDS: LASIX PO SCH (10:15)
[2018-08-19] MEDS: XYLOCAINE 5% OINT TOP SCH ×3 (10:19→17:25)
[2018-08-19] MEDS: PATIENT'S OWN MED PO SCH (10:19)
[2018-08-19] MEDS: LOVENOX SUBQ SCH ×2 (11:57→11:58)
[2018-08-19] MEDS: D5 1/2 NS 1,000 ML IV SCH (15:55)
[2018-08-19] MEDS: MELATONIN PO SCH (23:34)
[2018-08-20] MEDS: MS CONTIN PO SCH ×6 (03:25→22:13)
[2018-08-20] MEDS: ZOSYN 3.375 GM in NS 50 ML IV SCH ×5 (04:47→22:19)
[2018-08-20] MEDS: ROBAXIN PO SCH ×3 (04:49→22:27)
[2018-08-20] MEDS: RELAFEN PO SCH ×3 (04:49→22:27)
[2018-08-20] MEDS: LOVENOX SUBQ SCH ×2 (09:18)
[2018-08-20] MEDS: VITAMIN D PO SCH (09:18)
[2018-08-20] MEDS: LASIX PO SCH (09:18)
[2018-08-20] MEDS: NEURONTIN PO SCH ×3 (09:18→22:15)
[2018-08-20] MEDS: D5 1/2 NS 1,000 ML IV SCH ×2 (09:29→16:20)
[2018-08-20] MEDS: SANTYL OINT TOP SCH (10:30)
[2018-08-20] MEDS: VITAMIN E PO SCH (11:38)
[2018-08-20] MEDS: XYLOCAINE 5% OINT TOP SCH ×3 (11:41→22:15)
[2018-08-20] MEDS: PATIENT'S OWN MED PO SCH (11:42)
[2018-08-20] MEDS: MELATONIN PO SCH (22:16)
[2018-08-21] MEDS: MS CONTIN PO SCH ×4 (05:22→21:50)
[2018-08-21] MEDS: ZOSYN 3.375 GM in NS 50 ML IV SCH ×4 (05:23→21:52)
[2018-08-21] MEDS: ROBAXIN PO SCH ×3 (05:23→21:50)
[2018-08-21] MEDS: RELAFEN PO SCH ×3 (05:23→21:51)
[2018-08-21] MEDS: NEURONTIN PO SCH ×3 (10:11→18:47)
[2018-08-21] MEDS: VITAMIN D PO SCH (10:11)
[2018-08-21] MEDS: LASIX PO SCH (10:12)
[2018-08-21] MEDS: LOVENOX SUBQ SCH ×2 (10:12)
[2018-08-21] MEDS: VITAMIN E PO SCH (10:12)
[2018-08-21] MEDS: PATIENT'S OWN MED PO SCH (10:13)
[2018-08-21] MEDS: XYLOCAINE 5% OINT TOP SCH ×3 (10:13→18:47)
[2018-08-21] MEDS: SANTYL OINT TOP SCH (10:13)
[2018-08-21] MEDS: D5 1/2 NS 1,000 ML IV SCH (18:48)
[2018-08-21] MEDS: MELATONIN PO SCH (21:52)
[2018-08-22] MEDS: MS CONTIN PO SCH ×4 (03:50→23:31)
[2018-08-22] MEDS: RELAFEN PO SCH ×3 (03:51→23:33)
[2018-08-22] MEDS: ZOSYN 3.375 GM in NS 50 ML IV SCH ×4 (03:51→23:33)
[2018-08-22] MEDS: D5 1/2 NS 1,000 ML IV SCH ×2 (03:52→17:29)
[2018-08-22] MEDS: LASIX PO SCH (07:01)
[2018-08-22] MEDS: VITAMIN E PO SCH (09:31)
[2018-08-22] MEDS: LOVENOX SUBQ SCH ×2 (09:31)
[2018-08-22] MEDS: NEURONTIN PO SCH ×3 (09:31→17:29)
[2018-08-22] MEDS: VITAMIN D PO SCH (09:32)
[2018-08-22] MEDS: XYLOCAINE 5% OINT TOP SCH ×3 (09:32→17:50)
[2018-08-22] MEDS: SANTYL OINT TOP SCH (12:00)
[2018-08-22] MEDS: ROBAXIN PO SCH ×3 (12:28→23:33)
[2018-08-22] MEDS: MELATONIN PO SCH (23:33)
[2018-08-23] MEDS: ZOSYN 3.375 GM in NS 50 ML IV SCH ×4 (03:34→21:33)
[2018-08-23] MEDS: MS CONTIN PO SCH ×4 (03:38→18:47)
[2018-08-23] MEDS: RELAFEN PO SCH ×3 (03:38→21:33)
[2018-08-23] MEDS: ROBAXIN PO SCH ×3 (06:00→21:33)
[2018-08-23] MEDS: LASIX PO SCH (06:40)
[2018-08-23 06:58] LABS: BASO# 0.06 X1000 (0.0-0.2); BASO% 1.2 % (0.0-0.8); EOS# 0.27 X1000 (0.0-0.7); EOS% 5.2 % (0.0-10.0); HEMATOCRIT 44.2 % (37.0-47.0); HEMOGLOBIN 13.8 g/dL (12.0-16.0); LYMPH# 1.42 X1000 (1.2-3.4); LYMPH% 27.5 % (20.5-51.1); MCH 29.4 PG (27-31); MCHC 31.2 g/dL (33-37); MCV 94.2 FL (81-99); MONO# 0.68 X1000 (0.11-0.59); MONO% 13.2 % (1.7-9.3); MPV 11.9 FL (7.4-10.4); NEUT# 2.73 X1000 (1.4-6.5); NEUT% 52.9 % (42.2-75.2); PLT 197 X1000 (130-400); RBC 4.69 XMIL (4.2-5.4); RDW 18.8 % (11.5-14.5); WBC 5.16 X1000 (4.8-10.8)
[2018-08-23 07:23] LABS: CALCIUM 9.2 mg/dL (8.8-10.2); CREATININE 1.2 mg/dL (0.5-0.9); POTASSIUM 4.1 mmol/L (3.5-5.1)
[2018-08-23] MEDS: SANTYL OINT TOP SCH (09:18)
[2018-08-23] MEDS: LOVENOX SUBQ SCH ×2 (09:19)
[2018-08-23] MEDS: NEURONTIN PO SCH ×3 (09:20→18:47)
[2018-08-23] MEDS: VITAMIN D PO SCH (09:20)
[2018-08-23] MEDS: PATIENT'S OWN MED PO SCH (09:20)
[2018-08-23] MEDS: VITAMIN E PO SCH (09:21)
[2018-08-23] MEDS: XYLOCAINE 5% OINT TOP SCH ×3 (13:50→19:50)
[2018-08-23] MEDS: MELATONIN PO SCH (21:33)
[2018-08-24] MEDS: MS CONTIN PO SCH ×6 (01:11→20:45)
[2018-08-24] MEDS: D5 1/2 NS 1,000 ML IV SCH ×2 (01:11→16:48)
[2018-08-24] MEDS: ZOSYN 3.375 GM in NS 50 ML IV SCH ×3 (04:38→20:56)
[2018-08-24] MEDS: RELAFEN PO SCH ×3 (04:39→20:55)
[2018-08-24] MEDS: ROBAXIN PO SCH ×3 (04:39→21:00)
[2018-08-24] MEDS: LASIX PO SCH (06:54)
[2018-08-24] MEDS ORDERED: DIPRIVAN 1% ONE (10:22)
[2018-08-24] MEDS ORDERED: XYLOCAINE-MPF 2% ONE (10:23)
[2018-08-24] MEDS ORDERED: QUELICIN (DOSE) ONE (11:02)
[2018-08-24] MEDS ORDERED: MURI-LUBE MINERAL OIL ONE (11:53)
[2018-08-24] MEDS ORDERED: MORPHINE ONE (12:07)
[2018-08-24] MEDS ORDERED: ROBINUL ONE (12:22)
[2018-08-24] MEDS ORDERED: EPHEDRINE ONE (12:22)
[2018-08-24] MEDS: DILAUDID ONE ×2 (13:28→13:31)
[2018-08-24] MEDS: PHENERGAN ONE ×3 (13:44→13:58)
[2018-08-24] MEDS: NEURONTIN PO SCH ×3 (15:03→16:50)
[2018-08-24] MEDS: PATIENT'S OWN MED PO SCH (15:07)
[2018-08-24] MEDS: VITAMIN E PO SCH (15:08)
[2018-08-24] MEDS: XYLOCAINE 5% OINT TOP SCH ×2 (15:08→16:51)
[2018-08-24] MEDS: VITAMIN D PO SCH (15:09)
[2018-08-24] MEDS: SANTYL OINT TOP SCH (15:18)
--- NOTE | 2018-08-24 17:18 | OPERATIVE NOTE ---
PROCEDURE DATE: 08/24/2018 PREOPERATIVE DIAGNOSIS: Traumatic wound right and left bradley, left greater than right. PROCEDURE: Debride right bradley wound, debride left bradley wound with split-thickness skin graft 11 x 2.5 x 1 cm with placement of wound VAC. DESCRIPTION OF PROCEDURE: The patient was brought to the operating room. After satisfactory induction of IV and endotracheal anesthesia, she was placed in the supine position. Both shins were prepped and draped in the appropriate manner. The bradley wound on the right side is 3 x 3 cm and quite superficial. It was sharply debrided of skin, slough and old hematoma, and sterile dressing was applied. Attention was then taken to the left bradley, which had the large flap type laceration from running her cart into an iron-sided bed. The wound was sharply debrided. It was 11 x 2.5 x 1 cm. A split thickness graft was subsequently taken from the left thigh, meshed to 1 to 1.5, and tacked down with stainless steel clips and 3-0 chromic suture. Mepitel and wound VAC were redeployed with a satisfactory seal. The patient subsequently had a sterile dressing applied to her thigh. She was awakened and extubated in the operating room and transferred to recovery. ESTIMATED BLOOD LOSS: Around 20 mL. cc: Bob Roth MD
[2018-08-24] MEDS: MELATONIN PO SCH (20:56)
[2018-08-24] MEDS ORDERED: ATIVAN IV ONE (21:23)
[2018-08-25] MEDS: MS CONTIN PO SCH ×6 (00:01→23:21)
[2018-08-25] MEDS: ZOSYN 3.375 GM in NS 50 ML IV SCH (02:20)
[2018-08-25] MEDS: ROBAXIN PO SCH ×3 (04:51→23:28)
[2018-08-25] MEDS: RELAFEN PO SCH ×2 (04:51→13:04)
[2018-08-25] MEDS: LASIX PO SCH ×2 (06:32→07:40)
[2018-08-25] MEDS: D5 1/2 NS 1,000 ML IV SCH (06:33)
[2018-08-25] MEDS: VITAMIN E PO SCH (13:01)
[2018-08-25] MEDS: NEURONTIN PO SCH ×3 (13:01→19:49)
[2018-08-25] MEDS: KEFLEX PO SCH ×2 (13:04→23:23)
[2018-08-25] MEDS: XYLOCAINE 5% OINT TOP SCH ×3 (13:05→19:49)
[2018-08-25] MEDS: PATIENT'S OWN MED PO SCH (13:06)
[2018-08-25] MEDS: VITAMIN D PO SCH (13:07)
[2018-08-25] MEDS: PERIDEX MT SCH ×3 (13:07→23:32)
[2018-08-25] MEDS: SANTYL OINT TOP SCH (19:49)
[2018-08-25] MEDS: MELATONIN PO SCH (23:23)
[2018-08-26] MEDS: RELAFEN PO SCH ×4 (00:47→20:22)
[2018-08-26] MEDS: ROBAXIN PO SCH ×3 (04:07→20:23)
[2018-08-26] MEDS: KEFLEX PO SCH ×3 (04:07→20:22)
[2018-08-26] MEDS: MS CONTIN PO SCH ×3 (07:04→19:01)
[2018-08-26] MEDS: LASIX PO SCH (07:04)
[2018-08-26] MEDS: VITAMIN E PO SCH (11:41)
[2018-08-26] MEDS: PATIENT'S OWN MED PO SCH (11:41)
[2018-08-26] MEDS: VITAMIN D PO SCH (11:41)
[2018-08-26] MEDS: NEURONTIN PO SCH ×3 (11:41→20:22)
[2018-08-26] MEDS: PERIDEX MT SCH ×3 (11:41→20:22)
[2018-08-26] MEDS: XYLOCAINE 5% OINT TOP SCH ×3 (11:44→16:12)
[2018-08-26] MEDS: SANTYL OINT TOP SCH (11:46)
[2018-08-26] MEDS: MELATONIN PO SCH (20:23)
[2018-08-27] MEDS: MS CONTIN PO SCH ×4 (01:02→20:23)
[2018-08-27] MEDS: ROBAXIN PO SCH ×3 (06:31→20:24)
[2018-08-27] MEDS: RELAFEN PO SCH ×3 (06:31→20:24)
[2018-08-27] MEDS: KEFLEX PO SCH ×3 (06:32→20:24)
[2018-08-27] MEDS: LASIX PO SCH (06:51)
[2018-08-27] MEDS: PERIDEX MT SCH ×2 (09:43→20:24)
[2018-08-27] MEDS: VITAMIN E PO SCH (09:44)
[2018-08-27] MEDS: VITAMIN D PO SCH (09:44)
[2018-08-27] MEDS: NEURONTIN PO SCH ×3 (09:47→19:49)
[2018-08-27] MEDS: XYLOCAINE 5% OINT TOP SCH ×3 (09:49→19:49)
[2018-08-27] MEDS: PATIENT'S OWN MED PO SCH (09:50)
[2018-08-27] MEDS: MELATONIN PO SCH (20:24)
[2018-08-28] MEDS: MS CONTIN PO SCH ×2 (02:39→08:25)
[2018-08-28] MEDS: KEFLEX PO SCH (05:34)
[2018-08-28] MEDS: ROBAXIN PO SCH (05:34)
[2018-08-28] MEDS: RELAFEN PO SCH (05:34)
[2018-08-28] MEDS: LASIX PO SCH ×2 (05:35→06:58)
[2018-08-28] MEDS: VITAMIN D PO SCH (08:25)
[2018-08-28] MEDS: NEURONTIN PO SCH (08:25)
[2018-08-28] MEDS: XYLOCAINE 5% OINT TOP SCH (08:26)
[2018-08-28] MEDS: PATIENT'S OWN MED PO SCH (08:26)
[2018-08-28] MEDS: VITAMIN E PO SCH (08:26)
[2018-08-28] MEDS: PERIDEX MT SCH (08:26)
[2018-08-28 11:52] VITALS: BP 150/62
--- NOTE | 2018-08-28 12:46 | DISCHARGE SUMMARY ---
ADMISSION DATE: 08/18/2018 DISCHARGE DATE: DIAGNOSIS: Acute wound, left calf. PROCEDURE PERFORMED: Debridement with split thickness graft. HOSPITAL COURSE: The patient is a 78-year-old, white female, morbidly obese, who rides a scooter. She rammed her scooter into the side of her bed with a deep laceration on her left calf resulting in a 7 inch wound that was about an inch deep with a large flap. This was sewed up in the emergency room 2 weeks ago. However the sutures failed and the flap necrosed. She was subsequently admitted on 08/18/2018 for IV antibiotics. There is a smaller wound on the right calf. She had a debridement and a split thickness graft on Friday this week and a wound VAC was applied. The plan is for the wound VAC removal on Friday of next week. She will be sent to the rehab situation. She has not walked in apparently years but rides around in her scooter. Medication as well recorded. She has an allergy to sulfa. Hospitalization was largely uneventful. The cultures only grew Staph epi. So the plan is for her to go to rehab and come back to the emergency room on Friday for wound VAC removal and then go back to rehab. The family may entertain the idea of her staying in the [facility]. cc: Bob Roth MD
--- NOTE | 2018-09-02 10:39 | HISTORY AND PHYSICAL ---
DIAGNOSIS: Traumatic injury, left calf and right calf. PLAN: Admission IV antibiotics, debridement and probable skin graft. HISTORY OF PRESENT ILLNESS: The patient is a 78-year-old, white female who suffers from inactivity, morbid obesity. She has had bilateral total knees. She does not walk anymore. She has difficulty getting around at all but mostly rides on a power scooter. On 2 occasions 4 days prior to admission, she rammed her legs into the bedside which is apparently iron. She knocked a piece of skin off of her right bradley and an hour or 2 later, she sustained a deep laceration to the left anterior bradley about 6 inches long and about 2 inches deep. There was a large flap laceration there. She was brought to the emergency room. Suture repair was performed; however, this has failed with skin necrosis. She now has some surrounding cellulitis and is in danger of infecting her knees, so we will put her in and give her IV antibiotics, debride the wound, place a wound VAC and probably do a graft on her in the near future. PHYSICAL EXAMINATION: GENERAL: Reveals a morbidly obese, elderly white female with moderate dementia. HEAD AND NECK: She is normocephalic, atraumatic. Pupils equal and reactive. EARS, NOSE, AND THROAT: Negative. CHEST: Chest is clear. ABDOMEN: Significantly obese. GENITOURINARY: Negative. NEUROLOGICAL: Intact. EXTREMITIES: The wound on her left calf is about 6 inches long and 2 inches deep with necrosis of the suture line. There is just a 3 cm skin defect on the right bradley. She has had bilateral total knees. IMPRESSION: A significant injury to the left calf, possible limb loss situation. PLAN: Admission, IV antibiotics, wound VAC placement and probable graft in the near future. cc: Bob Roth MD
== END 2018-08-28 14:41 | DRG 264 ==
LOC: DIRADM 14:40 → 4N 14:46 → 3N 08-25 21:05
PROVIDERS: ADMIT Surgery; ATTEND Surgery
CPT/HCPCS: 71010; 71045; 80048; 80053; 81001; 85025; 87070; 87077; 87088; 87186; 93005; 93010; 94761; 94799; 97110; 97162; 97167; 97530; 97535; A9270; J0330; J1170; J1650; J2060; J2270; J2543; J2550

== ENCOUNTER 2018-09-19 12:44 | Observation (INO) ==
[2018-09-19 15:22] LABS: BASO# 0.04 X1000 (0.0-0.2); BASO% 0.5 % (0.0-0.8); EOS# 0.43 X1000 (0.0-0.7); EOS% 5.5 % (0.0-10.0); HEMATOCRIT 41.8 % (37.0-47.0); HEMOGLOBIN 13.5 g/dL (12.0-16.0); IMM GRAN# 0.01 X1000 (0.0-0.04); IMM GRAN% 0.1 % (0.0-0.5); LYMPH# 0.94 X1000 (1.2-3.4); LYMPH% 12.1 % (20.5-51.1); MCH 29.3 PG (27-31); MCHC 32.3 g/dL (33-37); MCV 90.9 FL (81-99); MONO# 0.84 X1000 (0.11-0.59); MONO% 10.8 % (1.7-9.3); MPV 11.1 FL (7.4-10.4); NEUT# 5.53 X1000 (1.4-6.5); PLT 246 X1000 (130-400); RDW 16.3 % (11.5-14.5); WBC 7.79 X1000 (4.8-10.8)
--- NOTE | 2018-09-19 15:28 | EKG Report ---
Test Performed on : 09/19/2018 3:19:31 PM Test Reason : weakness Blood Pressure : / mmHG Vent. Rate : 062 BPM Atrial Rate : 062 BPM P-R Int : 162 ms QRS Dur : 090 ms QT Int : 426 ms P-R-T Axes : 067 -42 -51 degrees QTc Int : 432 ms Sinus rhythm. with occasional premature ventricular complexes. Left axis deviation T wave abnormality, consider anterolateral ischemia Abnormal ECG When compared with ECG of 18-AUG-2018 15:48, premature ventricular complexes. are now present Unconfirmed Result
[2018-09-19 15:41] LABS: AGAP 13; ALKALINE PHOSPHATASE 112 U/L (32-104); BUN 12 mg/dL (8-22); CALCIUM 8.9 mg/dL (8.8-10.2); CHLORIDE 103 mmol/L (98-107); COSMO 279; CREATININE 0.8 mg/dL (0.5-0.9); ESTIMATED GFR > 60; GLUCOSE 89 mg/dL (70-104); GOT 19 U/L (10-30); GPT 9 U/L (10-36); POTASSIUM 4.6 mmol/L (3.5-5.1); SODIUM 140 mmol/L (136-145); TCO2 25 mmol/L (25-35); TOTAL PROTEIN 7.2 g/dL (6.3-8.3)
[2018-09-19] MEDS ORDERED: DILAUDID IV ONE (17:09)
[2018-09-19 17:53] LABS: URINE SOURCE CATH
--- NOTE | 2018-09-19 17:57 | Diag Imaging Result Doc PS360 ---
EXAM: CHEST-1 VIEW INDICATION: weakness TECHNIQUE: One view COMPARISON: 08/18/2018 FINDINGS: Chronic appearing interstitial thickening bilaterally is stable. No discrete airspace consolidation is appreciated. There is no discrete pleural fluid collection or pneumothorax. The cardiomediastinal silhouette and central vasculature are grossly unremarkable. IMPRESSION: Stable chronic appearing interstitial thickening. No definite acute pathology by plain radiograph. Electronically signed by Ankit Guerrero 09/19/2018 5:55 PM
[2018-09-19 18:38] LABS: BILIRUBIN URINE NEGATIVE (NEGATIVE); BLOOD URINE 4+ (NEGATIVE); CLARITY BLOODY (CLEAR); COLOR RED; GLUCOSE URINE NEGATIVE (NEGATIVE); KETONE URINE TRACE mg/dL (NEGATIVE); LEUKOCYTES URINE 2+ (NEGATIVE); NITRITE URINE NEGATIVE (NEGATIVE); PROTEIN URINE 1+(30 mg/dL) mg/dL (NEGATIVE); UROBILINOGEN URINE NORMAL
[2018-09-19 18:43] LABS: URINE BACTERIA 1+ /HFP; URINE EPITHELIAL CELLS <10 /HPF (<10); URINE RBC TNTC /HPF (<10); URINE YEAST NONE SEEN /HPF
[2018-09-19 18:44] LABS: URINE CAST NONE SEEN /LPF; URINE CRYSTAL NONE SEEN /HPF
--- NOTE | 2018-09-19 19:17 | PROVIDER DOCUMENTATION ---
This chart was entered by Alex Estrada Scribe, acting as scribe for Young Newberry MD. HPI-General Adult - General Source: family - History of Present Illness -Gen Adult Nature of Presenting Problems: Pt is a 78 y/o F brought to the ED for weakness with generalized body pains. Son reports pt was in rehab for 21 days and home for 2 days. Pt denies fever, cough, chest pain, SOB and N/V. Location of Pain/Injury: reports: generalized (weakness and hurting all over) Pain Radiation: reports: no radiation Quality of Pain: reports: aching Severity: reports: mild Onset/Duration: reports: unsure, gradual Timing: reports: still present Associated Symptoms: reports: weakness, trouble walking. denies: arm pain, diarrhea, fever/chills, sinus congestion/drainage Similar Symptoms Previously?: Yes Recently seen or treated by another doctor?: Yes <Young Newberry - Last Filed: 09/19/18 19:17> <Deny De La Fuente - Last Filed: 09/19/18 21:12> - General Chief Complaint: Weakness Stated Complaint: DEHYDRATION Time Seen by Provider: 09/19/18 13:30 Allergies/Adverse Reactions: Patient Allergies Allergy/AdvReac Type Severity Reaction Status Date / Time Sulfa (Sulfonamide Allergy Unknown Unknown Verified 09/19/18 14:40 Antibiotics) Home Medications: Home Medication List Medication Instructions Recorded Confirmed Last Taken Type Cranberry 2 tab PO DAILY PRN PRN 07/12/18 09/19/18 Unknown History Vitamin E 1 tab PO DAILY 07/12/18 09/19/18 Unknown History Cholecalciferol (Vitamin D3) 1 tab PO DAILY #90 cap 07/19/18 09/19/18 Unknown Rx [Vitamin D3] Furosemide [Lasix] 40 mg PO DAILY #90 tab 07/19/18 09/19/18 Unknown Rx Gabapentin [Neurontin] 100 mg PO TID #90 cap 07/19/18 09/19/18 Unknown Rx Lidocaine 5% Oint [Xylocaine 5% 1 gm TOP TID #1 tube 07/19/18 09/19/18 Unknown Rx Oint] Magnesium 1 tab PO DAILY #90 tab 07/19/18 09/19/18 Unknown Rx Methocarbamol [Robaxin] 500 mg PO Q8H #90 tab 07/19/18 09/19/18 Unknown Rx Melatonin 3 mg PO QHS 08/18/18 09/19/18 Unknown History Morphine E.r. [Ms Contin] 15 mg PO Q6H 08/18/18 09/19/18 Unknown History Nabumetone [Relafen] 500 mg PO Q8H 08/18/18 09/19/18 Unknown History Review of Systems - Adult - REVIEW OF SYSTEMS - ADULT Constitutional: reports: other (generalized weakness). denies: chills, fever Eyes: reports: no symptoms reported Ears, Nose, Mouth & Throat: denies: ear pain, throat pain Cardiovascular: reports: edema. denies: chest pain, palpitations Respiratory: denies: cough, shortness of breath, wheezing Gastrointestinal: denies: abdominal pain, nausea, vomiting Genitourinary: denies: dysuria, discharge Musculoskeletal: denies: back pain, neck pain Integumentary: reports: no symptoms reported Neurological: denies: dizziness/vertigo, headache/migraines Psychiatric: reports: no symptoms reported Endocrine: reports: no symptoms reported Hematologic/Lymphatic: reports: no symptoms reported Allergic/Immunologic: reports: no symptoms reported All Other Systems: Reviewed and Negative <Young Newberry - Last Filed: 09/19/18 19:17> Past History - Adult - PAST MEDICAL HISTORY-ADULT Review of Records: reports: Old Records Reviewed, Nursing Assessment Review, Medications Reviewed - SOCIAL HISTORY Smoking: non-smoker Living Situation: family <Young Newberry - Last Filed: 09/19/18 19:17> Physical Exam-General - PHYSICAL EXAM-ADULT Initial Vital Signs Reviewed: Yes - CONSTITUTIONAL General Appearance: alert, no apparent distress - EYES Eyes: PERRL/EOMI, pink conjunctivae - HEAD, EARS, NOSE, MOUTH & THROAT HENMT: moist mucous membranes, normal ENT inspection, pharynx normal - NECK Neck: non-tender, full range of motion, supple, normal inspection - RESPIRATORY Respiratory: no pleuratic chest pain, no respiratory distress, wheezing (bilatral wheezing) - CARDIOVASCULAR Cardiovascular: normal peripheral pulses, regular rate, rhythm - GASTROINTESTINAL (ABDOMEN) Abdominal Exam: normal bowel sounds, non tender, soft - MUSCULOSKELETAL Back Exam: normal inspection, no CVA tenderness, no vertebral tenderness Extremity: pedal edema (bilateral). negative: normal range of motion, normal gait - SKIN Integumentary: normal color, normal turgor, warm/dry - NEUROLOGIC Neurologic: grossly normal, no motor/sensory deficits - PSYCHIATRIC Psych/Mental Status: normal mood/affect, normal thought content, normal thought process, oriented x 3 <Young Newberry - Last Filed: 09/19/18 19:17> Progress - PLAN OF CARE/RESULTS Progress/Plan/Lab Results: Vital Signs - 8 hr 09/19/18 13:23 Temperature 98.4 F Pulse Rate 71 Respiratory Rate 22 Blood Pressure 153/84 O2 Sat by Pulse Oximetry 94 L Orders Category Date Time Status CBC WITH ELECTRONIC DIFF [HEME] Stat Lab 09/19/18 14:07 Ordered COMPREHENSIVE METABOLIC PANEL [CHEM] Stat Lab 09/19/18 14:[address] [URINALYSIS] Stat Lab 09/19/18 13:54 Uncollected Generalized Adult Illness >60 Stat Oth 09/19/18 13:54 Ordered EKG [EKG] Stat Ther 09/19/18 13:55 Ordered Result Diagrams: 09/19/18 15:15 09/19/18 14:55 - EKG 1 Time of EKG reading by physician:: 15:19 EKG Read and Signed by:: Young Newberry EKG Interpretation (*Must complete 3 of following elements*): Abnormal Rate: 62 Rhythm: Sinus with occasional PVC's [place]: left Comments: T wave abnormality - CHANGE OF SHIFT REPORT (ED Provider) 1 Report Given and Care Transferred to:: DR DE LA FUENTE Time of Transfer: 19:00 Items Pending: Physician Consult/Arrival (WAITING FOR HOSPITALIST TO CALL BACK) <Young Newberry - Last Filed: 09/19/18 19:17> - PLAN OF CARE/RESULTS Progress/Plan/Lab Results: Vital Signs - 8 hr 09/19/18 13:23 09/19/18 15:25 09/19/18 16:51 Temperature 98.4 F Pulse Rate 71 65 70 Respiratory Rate 22 22 20 Blood Pressure 153/84 156/71 149/115 O2 Sat by Pulse Oximetry 94 L 96 96 09/19/18 18:30 09/19/18 19:22 Temperature 97.5 F L 97.9 F Pulse Rate 64 71 Respiratory Rate 18 18 Blood Pressure 159/69 166/72 O2 Sat by Pulse Oximetry 92 L 94 L Laboratory Results - last 24 hr 09/19/18 09/19/18 09/19/18 14:55 15:14 15:15 WBC 7.79 RBC 4.60 Hgb 13.5 Hct 41.8 MCV 90.9 MCH 29.3 MCHC 32.3 L RDW Std Deviation 16.3 H Plt Count 246 MPV 11.1 H Immature Gran % (Auto) 0.1 Neut % (Auto) 71.0 Lymph % (Auto) 12.1 L Be[place] % (Auto) 10.8 H Eos % (Auto) 5.5 Baso % (Auto) 0.5 Immature Gran # (Auto) 0.01 Neut # (Auto) 5.53 Lymph # (Auto) 0.94 L [place] # (Auto) 0.84 H Eos # (Auto) 0.43 Baso # (Auto) 0.04 Sodium 140 Potassium 4.6 Chloride 103 Carbon Dioxide 25 Anion Gap 13 BUN 12 Creatinine 0.8 Estimated GFR/1.73 m2 > 60 BUN/Creatinine Ratio 15 Glucose 89 POC Glucose 90 Calculated Osmolality 279 Calcium 8.9 Total Bilirubin 0.50 AST 19 ALT 9 L Alkaline Phosphatase 112 H Total Protein 7.2 Albumin 3.0 L Globulin 4.0 Albumin/Globulin Ratio 1.0 Urine Source Urine Color Urine Clarity Urine pH Ur Specific [place] Urine Protein Urine Ketones Urine Blood Urine Nitrite Urine Bilirubin Urine Urobilinogen Urine Microscopic RBC Urine WBC Urine Microscopic WBC Ur Epithelial Cells Urine Crystals Urine Bacteria Urine Casts Urine Yeast Urine Glucose 09/19/18 17:48 WBC RBC Hgb Hct MCV MCH MCHC RDW Std Deviation Plt Count MPV Immature Gran % (Auto) Neut % (Auto) Lymph % (Auto) [place] % (Auto) Eos % (Auto) Baso % (Auto) Immature Gran # (Auto) Neut # (Auto) Lymph # (Auto) [place] # (Auto) Eos # (Auto) Baso # (Auto) Sodium Potassium Chloride Carbon Dioxide Anion Gap BUN Creatinine Estimated GFR/1.73 m2 BUN/Creatinine Ratio Glucose POC Glucose Calculated Osmolality Calcium Total Bilirubin AST ALT Alkaline Phosphatase Total Protein Albumin Globulin Albumin/Globulin Ratio Urine Source CATH Urine Color RED Urine Clarity BLOODY A Urine pH 9.0 Ur Specific [place] 1.010 Urine Protein 1+(30 mg/dL) A Urine Ketones TRACE Urine Blood 4+ Urine Nitrite NEGATIVE Urine Bilirubin NEGATIVE Urine Urobilinogen NORMAL Urine Microscopic RBC TNTC A Urine WBC 2+ A Urine Microscopic WBC 10-20 A Ur Epithelial Cells <10 Urine Crystals NONE SEEN Urine Bacteria 1+ Urine Casts NONE SEEN Urine Yeast NONE SEEN Urine Glucose NEGATIVE Orders Category Date Time Status CHEST-1 VIEW [RAD] Stat Exams 09/19/18 17:09 Completed CBC WITH ELECTRONIC DIFF [HEME] Stat Lab 09/19/18 15:15 Completed COMPREHENSIVE METABOLIC PANEL [CHEM] Stat Lab 09/19/18 14:[address] [URINALYSIS] Stat Lab 09/19/18 17:48 Completed URINE MICROSCOPIC [URINALYSIS] Stat Lab 09/19/18 17:48 Completed Hydromorphone [Dilaudid] Med 09/19/18 17:09 Discontinued 2 mg IV NOW ONE Generalized Adult Illness >60 Stat Oth 09/19/18 13:54 Ordered EKG [EKG] Stat Ther 09/19/18 13:55 Draft Result Diagrams: 09/19/18 15:15 09/19/18 14:55 <Deny De La Fuente - Last Filed: 09/19/18 21:12> Departure <Young Newberry - Last Filed: 09/19/18 19:17> - Departure Date of Disposition Decision: 09/19/18 Time of Disposition Decision: 21:06 Certified Medical Emergency: Emergent - Critical Care Note This patient required my direct & personal management of CC.: No <Deny De La Fuente - Last Filed: 09/19/18 21:12> - Departure DIAGNOSIS: UTI (urinary tract infection), Generalized weakness Disposition: ADMITTED INPATIENT 09 Condition: Stable Referrals and Follow-Ups: None,PCP [NON-STAFF PROVIDER] - Attestation - Physician/ PATRICIA Attestation Patient care was provided by Advanced Practice Provider:: No The physician spent face to face time with patient:: Yes Advanced Practice Provider documentation review:: Supervising physician onsite and consulted in the evaluation and care of this patient. The physician did have a face to face encounter with the patient. <Deny De La Fuente - Last Filed: 09/19/18 21:12> This chart was documented by the indicated scribe, (Alex Estrada Scribe) and accurately reflects the services I performed and decisions made by me, Young Newberry MD, as attested by the provider's signature.
[2018-09-19] MEDS ORDERED: ROCEPHIN 1 GM in NS 50 ML IV ONE (21:11)
[2018-09-19] MEDS ORDERED: MS CONTIN PO ONE (22:34)
[2018-09-19] MEDS: MELATONIN PO SCH (23:05)
[2018-09-19] MEDS: NEURONTIN PO SCH (23:06)
[2018-09-19] MEDS: ROBAXIN PO SCH (23:06)
[2018-09-20] MEDS: NEURONTIN PO SCH ×3 (10:34→21:47)
[2018-09-20] MEDS: ROBAXIN PO SCH ×3 (10:34→21:47)
[2018-09-20] MEDS ORDERED: DESITIN OINTMENT TOP PRN (12:44)
[2018-09-20] MEDS ORDERED: NON-FORMULARY BULK MED TOP PRN (13:07)
[2018-09-20] MEDS ORDERED: MORPHINE IV ONE (13:07)
[2018-09-20] MEDS ORDERED: ROBAXIN PO PRN (14:43)
[2018-09-20] MEDS: MS CONTIN PO SCH ×2 (15:50→22:57)
--- NOTE | 2018-09-20 16:55 | HISTORY AND PHYSICAL ---
CHIEF COMPLAINT: Weakness and generalized body pain. HISTORY OF PRESENT ILLNESS: This is a 78-year-old morbidly obese female with a history of chronic back and knee pain, osteoarthritis, hypertension, as well as a past history of DVT, although she is not on anticoagulation and has not been for quite some time. She presented to the emergency room complaining of generalized weakness and just body aches and pains all over. Ms. Lockhart had a traumatic wound to bilateral shins in the past and is status post debridement of bilateral shins with a split thickness skin graft and wound VAC that was placed in August 2018. She was subsequently discharged to rehab for 21 days. She had been home less than 48 hours prior to 911 being called and her presenting to the ER. Apparently, according to the chart, Ms. Lockhart is nonambulatory. She is refusing to eat and get out of bed. Workup in the emergency room was essentially negative although a catheter urine specimen returned to be bloody with pwd-scchmxhi-ek- count red blood cells. She was given Rocephin in the emergency room and is being admitted for further evaluation and treatment. PAST MEDICAL HISTORY: 1. Chronic back pain and knee pain. 2. Hypertension. 3. Chronic constipation secondary to opiate use. 4. History of DVT and PE in the past, although she has been off anticoagulation for quite some time. 5. Bilateral lower extremity infection. 6. Traumatic wounds to bilateral shins, status post bilateral debridement with a split-thickness skin graft and wound VAC placement to the left 08/18/2018. PAST SURGICAL HISTORY: Bilateral knee replacements. LASIK surgery bilateral. Bilateral tubal ligation. Five back surgeries with rods. SOCIAL HISTORY: She denies any alcohol, tobacco, or illicit drug use. She is wheelchair bound. REVIEW OF SYSTEMS: Discussed with the patient with pertinent positives stated in the HPI. She denied any syncope or dizziness; any chest pain or palpitations; any shortness of breath, cough, fever, chills; any night sweats; any nausea, vomiting, diarrhea, constipation, black or bloody vomitus or stools; any hematuria, dysuria, frequency, or urgency. PHYSICAL EXAMINATION: GENERAL: This is a 78-year-old female who is lying in the bed, crying, in mild distress. VITAL SIGNS: Blood pressure is 150/60 with heart rate of 63, respirations are 18, temperature is 97.8 degrees oral with room air saturations 95% to 96%. HEENT: Head is normocephalic, atraumatic. Mucous membranes are moist. NECK: Supple. Trachea midline. CARDIOVASCULAR: Regular rate and rhythm. S1 and S2 appreciated. Peripheral pulses are palpable x4 extremities. PULMONARY: Breath sounds are clear. No increased work of breathing noted. Chest rises and falls symmetric with respiration. Chest wall is nontender to palpation. GASTROINTESTINAL: Soft, nontender, nondistended with bowel sounds in all 4 quadrants. GENITOURINARY: She has no CVA. No suprapubic tenderness. She has an external catheter in place with dark red drainage NEUROLOGIC: She is alert and oriented x3. Tearful at times. SKIN: Warm and dry. She has excoriation noted to bilateral groins, bilateral inner thighs, all around her nancy area with excoriation under her lower abdominal fold as well as to her buttocks. LABORATORY DATA: WBC is 7.7 with hemoglobin 13.5, hematocrit 41.8, platelets of 246,000. Sodium 140, potassium 4.6, BUN 12, creatinine 0.8, with glucose of 89. Urinalysis from the emergency room reveals a bloody urine, red in color, with daz-cfpqhkii-np-count red blood cells,10 to 20 microscopic white blood cells, 1+ bacteria. Chest x-ray reveals stable chronic- appearing interstitial thickening. No definite acute pathology. ASSESSMENT AND PLAN: 1. Generalized weakness. Consult dietary for assist in nutrition. Consult Physical Therapy. 2. Chronic pain. Ms. Lockhart states that she was taking MS Contin as well as Relafen, Robaxin, gabapentin, and that she had some [place] left at her house and she has been taking them. She is unsure of doses. We will review her medications and restart with the appropriate medications as well as appropriate doses. 3. Presumed urinary tract infection. I, myself, inserted a Michaud catheter on the patient. There were no signs of outward trauma. She had a return of clear yellow urine. We will continue to monitor her I and O. 4. Vaginal bleed. While inserting the Michaud, I did notice that she had vaginal bleeding. Due to her anatomy, it was very difficult to do appropriate assessment, although with digital exam she did have a return of dark red blood with clots. I did discuss this with Dr. Lutz in [facility]. We will obtain a transvaginal ultrasound. The patient denies a hysterectomy. She denies any prior vaginal bleeding. 5. Skin excoriation as stated above. We will use Resinol to areas affected, covered with zinc oxide. 6. We will obtain a CBC, CMP, magnesium, and phosphorus in the morning. 7. For DVT prophylaxis, as she is bleeding of course we will hold off on any anticoagulation. We will use SCDs. 8. For GI prophylaxis use Prilosec. 9. As her urine was clear and she had no urinary symptoms, we will hold off on any further antibiotics given that she has had no fever, no white count, and no complaints. We will send a urine culture to this Michaud catheter specimen, and antibiotics will be culture driven. Dictated by JIMI Rico for Junito Cee MD cc: JIMI Rico MD [facility]
[2018-09-20] MEDS ORDERED: NEURONTIN PO SCH (17:00)
[2018-09-20] MEDS ORDERED: MELATONIN PO SCH (21:00)
[2018-09-20] MEDS: MELATONIN PO SCH (21:48)
[2018-09-20] MEDS ORDERED: ROBAXIN PO SCH (22:35)
[2018-09-21] MEDS: CALMOSEPTINE OINTMENT TOP PRN (05:09)
[2018-09-21] MEDS: MS CONTIN PO SCH ×3 (06:04→22:01)
[2018-09-21 08:04] LABS: AGAP 13; ALKALINE PHOSPHATASE 98 U/L (32-104); BUN 11 mg/dL (8-22); CALCIUM 8.4 mg/dL (8.8-10.2); CHLORIDE 104 mmol/L (98-107); COSMO 276; CREATININE 0.8 mg/dL (0.5-0.9); ESTIMATED GFR > 60; GLUCOSE 84 mg/dL (70-104); GOT 19 U/L (10-30); GPT 8 U/L (10-36); MAGNESIUM 2.1 mg/dL (1.5-2.7); PHOSPHORUS 3.5 mg/dL (2.7-4.5); POTASSIUM 4.2 mmol/L (3.5-5.1); SODIUM 139 mmol/L (136-145); TCO2 22 mmol/L (25-35); TOTAL PROTEIN 6.6 g/dL (6.3-8.3)
[2018-09-21] MEDS ORDERED: MORPHINE IV ONE (08:56)
[2018-09-21 09:39] LABS: BASO# 0.05 X1000 (0.0-0.2); BASO% 0.6 % (0.0-0.8); EOS# 0.72 X1000 (0.0-0.7); EOS% 8.5 % (0.0-10.0); HEMATOCRIT 44.4 % (37.0-47.0); HEMOGLOBIN 13.4 g/dL (12.0-16.0); IMM GRAN# 0.02 X1000 (0.0-0.04); IMM GRAN% 0.2 % (0.0-0.5); LYMPH# 1.26 X1000 (1.2-3.4); LYMPH% 14.9 % (20.5-51.1); MCH 27.5 PG (27-31); MCHC 30.2 g/dL (33-37); MCV 91.2 FL (81-99); MONO# 1.02 X1000 (0.11-0.59); MONO% 12.1 % (1.7-9.3); MPV 11.3 FL (7.4-10.4); NEUT# 5.37 X1000 (1.4-6.5); NEUT% 63.7 % (42.2-75.2); PLT 216 X1000 (130-400); RBC 4.87 XMIL (4.2-5.4); RDW 16.4 % (11.5-14.5); WBC 8.44 X1000 (4.8-10.8)
[2018-09-21] MEDS: MAG-OX PO SCH (09:47)
[2018-09-21] MEDS: MYCOSTATIN SUSP PO SCH ×4 (09:48→22:01)
[2018-09-21] MEDS: VITAMIN E PO SCH (09:48)
[2018-09-21] MEDS: NEURONTIN PO SCH ×3 (09:48→22:02)
[2018-09-21] MEDS: VITAMIN D PO SCH (09:48)
[2018-09-21] MEDS: ROBAXIN PO SCH ×3 (09:48→22:01)
--- NOTE | 2018-09-21 09:49 | Diag Imaging Result Doc PS360 ---
EXAM: US TRANSVAGINAL NON-OB HISTORY: vaginal bleeding TECHNIQUE: Endovaginal. COMPARISON: None. FINDINGS: Extremely limited study due to patient discomfort. Patient scanned in the decubitus position while being restrained. The uterus measures 7.3 x 3.8 x 3.4 cm. Endometrium appears to measure 4 mm. The ovaries are not appreciated. No adnexal masses or free fluid is identified. IMPRESSION: No acute abnormalities. Extremely limited study. Electronically signed by Fabiola Caba 09/21/2018 9:46 AM
--- NOTE | 2018-09-21 14:06 | PROGRESS NOTE ---
DATE: 09/21/2018 SUBJECTIVE: The patient complains of her shoulder hurting, legs hurting, stomach hurting. She notes that she has difficulty swallowing, hurts to move. It hurts when she does not move. Would like something for her arthritis. PHYSICAL EXAM: Vital Signs: Temperature 98.1, pulse 64, respiratory 18, blood pressure 132/61. General: Patient is awake, alert. She is in no current respiratory distress. HEENT: Normocephalic. Neck: Supple. Cardiovascular: Regular rate. No murmurs. Chest: Clear. Distant breath sounds. No wheezing. No crackles. Abdomen: Soft obese nondistended, diffusely mildly tender. Extremities: She has trace edema bilateral lower extremities. She is noted to move all extremities although painfully. ASSESSMENT: 1. Generalized adult failure to thrive with generalized weakness. 2. Chronic pain. 3. Urinary tract infection. 4. Presumed vaginal bleeding. 5. Skin excoriation. PLAN: We will continue patient in the hospital, continue her home medications. We will continue to follow. She currently has a vaginal ultrasound scheduled and we will treat accordingly. Discussed with her that she is already taking large doses of pain medication is increasing that would not be warranted. Discussed that we cannot use anti-inflammatories currently given her recent bleeding. cc: Edin Valentino MD
--- NOTE | 2018-09-21 15:37 | CONSULTATION ---
DATE OF CONSULTATION: 09/21/2018 HISTORY OF PRESENT ILLNESS: The patient is a 78-year-old, white female, G2, P2, who was admitted to the hospital and upon evaluation and Michaud catheter placement noted that she had blood in the vaginal vault. Consultation was obtained for this purpose. PAST MEDICAL HISTORY: Significant for pain management, back issues, and recent surgery for leg debridement. PAST SURGICAL HISTORY: Bilateral tubal ligation, appendectomy, back surgery x5 as well as recent surgeries for debridement on her legs. PAST OBSTETRICAL HISTORY: G2, P2. Spontaneous vaginal deliveries x2. GYNECOLOGICAL HISTORY: Menarche at age 14. Menopause was about age 50. FAMILY HISTORY: Significant for breast cancer and heart disease. REVIEW OF SYSTEMS: All systems reviewed and noncontributory. SOCIAL HISTORY: Tobacco use, none. Alcohol use, none. MEDICATIONS: Relafen, Robaxin, and morphine that she takes for her chronic pain. ALLERGIES: Sulfa. PHYSICAL EXAMINATION: Vital Signs: Height 5 feet 10 inches. Weight 260 pounds. Temperature 97.7 degrees, pulse of 60, respirations 18, blood pressure 131/52. HEENT: Pupils equal, round, and reactive to light and accommodation. Extraocular movements intact. Oropharynx clear. Neck: Supple. No thyromegaly. Lungs: Clear to auscultation. Heart: Regular rate and rhythm. Abdomen: Bowel sounds positive. Soft. Pelvic: Exam difficult to assess due to the patient's body habitus and limited mobility. Patient had touching skin on the inner folds of both thighs that also made it difficult to evaluate the vaginal orifice. The speculum exam was able to be performed with much difficulty. At this point in time, there appeared to be a normal cervix. No fungating masses. There was blood present but it appeared to be from the breakdown of skin around the vaginal orifice rather than any pathologic reason from the cervix. Extremities: Edema noted as well as limited mobility and also previous surgery for debridement of the lower leg. DIAGNOSTIC DATA: A pelvic ultrasound was performed. This showed that the uterine lining was 4 mm. ASSESSMENT AND PLAN: A 78-year-old, white female, G2, P2, with apparent vaginal bleeding. Unsure of the source, but most likely appears to be around the vaginal orifice due to the decubitus nature of the tissues from immobility. Unable to visualize any abnormality on the cervix and no palpation of anything abnormal. There was mild relaxation and confirmation with ultrasound that the lining is not thickened. At the present time, I would manage her skin condition, and this should improve her presentation of vaginal bleeding. cc: MD MEI Henry IIID
[2018-09-21] MEDS: MELATONIN PO SCH (22:02)
[2018-09-22] MEDS: MS CONTIN PO SCH ×2 (06:47→20:06)
[2018-09-22] MEDS: MYCOSTATIN SUSP PO SCH ×4 (10:39→20:06)
[2018-09-22] MEDS: MAG-OX PO SCH (10:40)
[2018-09-22] MEDS: NEURONTIN PO SCH ×3 (10:40→20:06)
[2018-09-22] MEDS: ROBAXIN PO SCH ×3 (10:40→20:06)
[2018-09-22] MEDS: VITAMIN D PO SCH (10:40)
[2018-09-22] MEDS: VITAMIN E PO SCH (10:40)
--- NOTE | 2018-09-22 19:02 | PROGRESS NOTE ---
DATE: 09/22/2018 SUBJECTIVE: Patient this morning is somewhat somnolent. She does arouse to stimuli. She is in no respiratory distress. She does not answer questions appropriately. She has to be constantly stimulated to stay awake. PHYSICAL EXAMINATION: Vital Signs: Temperature 98 degrees, pulse 68, respiratory rate 20, BP 126/44. General: Patient is an obese female who is currently in no respiratory distress, but is somewhat somnolent on exam. HEENT: Normocephalic. Neck: Supple. Cardiovascular: Regular rate, no murmurs. Chest: Clear, nonlabored. Abdomen: Soft, nondistended. Extremities: No edema. Neurologic: She is noted to move all extremities. ASSESSMENT: 1. Chronic pain. The patient states that she has been on morphine sulfate ER three times a day. Interestingly, there was no prescription from the PMD website until July at which time she had gotten the prescription from a hospitalist here. She has repeated that prescription from the hospitalist from surgery and likely from rehabilitation. It appears that she has taken 78 pills in the past 22 days, which would certainly be over her 3 a day reported prescription. Currently, she is quite somnolent. We will decrease her morphine to see if this will allow her to wake up and stay awake as this has been a problem on her current pain medication dosing. 2. Generalized weakness. 3. Urinary tract infection. Urine culture is still pending, but no more incubation required. 4. Skin breakdown. PLAN: We will continue patient in the hospital. Continue antibiotics. We will decrease her morphine as noted above. Continue to follow and further orders as needed. cc: Edin Valentino MD
[2018-09-22] MEDS: MELATONIN PO SCH (20:06)
[2018-09-23] MEDS: MS CONTIN PO SCH ×2 (08:48→20:02)
[2018-09-23] MEDS: VITAMIN D PO SCH (09:52)
[2018-09-23] MEDS: NEURONTIN PO SCH ×3 (09:52→20:03)
[2018-09-23] MEDS: MAG-OX PO SCH (09:52)
[2018-09-23] MEDS: VITAMIN E PO SCH (09:52)
[2018-09-23] MEDS: ROBAXIN PO SCH ×3 (09:52→20:03)
[2018-09-23] MEDS: MYCOSTATIN SUSP PO SCH ×4 (09:52→20:02)
[2018-09-23] MEDS: NORCO-5 PO PRN (14:47)
--- NOTE | 2018-09-23 19:58 | PROGRESS NOTE ---
DATE: 09/23/2018 SUBJECTIVE: The patient notes that she is still hurting all over. She hurts every time she moves, hurts when she does not move. She does note that she has not been following up outpatient with anyone for pain medication. OBJECTIVE: Vital Signs: Temperature 98.4, pulse 67, respiratory 20, BP 154/64. General: The patient is awake, very pleasant. She is not as somnolent this morning, which has been assisted by decreasing her pain medication. HEENT: Normocephalic. Neck: Supple. Cardiovascular: Regular rate. Chest: Clear. Abdomen: Soft. Extremities: Moves all extremities. Neurologic: No changes. ASSESSMENT: 1. Nausea and vomiting. 2. Abdominal pain. 3. Myalgias. 4. Paresthesias. 5. Diffuse chronic pain in her back, knees, shoulders, etc. 6. Hypertension. 7. Adult failure to thrive. 8. Others. PLAN: Discussed with the patient in great detail that she is on a large amount of pain medication and we will not send her home on this indefinitely. Discussed that she needs outpatient follow up for her current pain medication. Discussed that increasing her pain medication significantly would be a potentially detrimental thing as yesterday I could not wake her up, but after we have decreased her pain medications she is much more awake and alert. The patient is adamant that she has not filled the prescriptions although the PDMP would state otherwise. Again I discussed that we will not use morphine sulfate 4 times a day. Hopefully the patient can be discharged home. She is not going to be able to go to rehabilitation. We will plan on discharge in the next day or 2. cc: Edin Valentino MD
[2018-09-23] MEDS: MELATONIN PO SCH (20:02)
[2018-09-24] MEDS: NORCO-5 PO PRN ×2 (04:03→10:25)
[2018-09-24] MEDS: MS CONTIN PO SCH ×2 (07:48→19:59)
[2018-09-24] MEDS: NEURONTIN PO SCH ×2 (09:29→15:13)
[2018-09-24] MEDS: MAG-OX PO SCH (09:29)
[2018-09-24] MEDS: MYCOSTATIN SUSP PO SCH ×3 (09:29→19:13)
[2018-09-24] MEDS: VITAMIN E PO SCH (09:29)
[2018-09-24] MEDS: VITAMIN D PO SCH (09:29)
[2018-09-24] MEDS: ROBAXIN PO SCH ×2 (09:30→15:13)
[2018-09-24] MEDS: CALMOSEPTINE OINTMENT TOP PRN (15:18)
[2018-09-24 16:41] VITALS: BP 150/61
--- NOTE | 2018-09-24 22:01 | PROGRESS NOTE ---
DATE: 09/24/2018 SUBJECTIVE: Patient has no new complaints today. She is quite noncompliant. Has been documented multiple times by many staff members that she refuses to move, refuses to roll over, refuses to be assisted in rolling over in which she is ready to do such. She is complaining of back pain today because she somehow got the property assessment monitor box underneath her. She states that it was there for several hours. Unclear as to why she did to not ask to have help to remove it or why she did not just simply roll over and remove it herself. PHYSICAL EXAMINATION: Vital Signs: Temperature 97.4, pulse 67, respiratory rate 18, BP 107/64. General: Patient is in no current respiratory distress. She is awake, alert. HEENT: Normocephalic. Neck: Supple. Cardiovascular: Regular rate. No murmurs. Chest: Clear, nonlabored. Abdomen: Soft, obese, nondistended. Extremities: She has trace edema. Has no focal deficits. ASSESSMENT: 1. Adult failure to thrive. 2. Intentional noncompliance. 3. Chronic pain. 4. Vaginal bleeding that appears to be more from soft tissue and skin tissue. PLAN: Hopefully, patient will continue to feel better and be able to discharge home later this afternoon. We will continue to follow. Continue physical therapy which hopefully will continue to see her in the hospital. She had refused them previously. cc: Edin Valentino MD
--- NOTE | 2018-09-25 03:31 | DISCHARGE SUMMARY ---
ADMISSION DATE: 09/20/2018 DISCHARGE DATE: 09/24/2018 CONSULTATIONS: Dr. Calhoun with [facility]. PERTINENT PROCEDURES: 1. Chest x-ray, stable chronic appearing interstitial thickening. No definite acute pathology. 2. Pelvic transvaginal ultrasound showed no acute abnormalities. Extremely limited study. DISCHARGE DIAGNOSES: 1. Diffuse chronic pain in her back, knees and shoulders. The patient is on morphine sulfate p.o. She has been educated daily in great detail that she is on a large amount of pain medication and has slowly been weaned off throughout her hospital course and that she will need outpatient followup for her current pain medications. There were occasions where they had difficulty waking her up secondary to pain medication use, but after decrease in pain medications she has been much more awake and alert. However, patient continues to be adamant that she has not filled prescriptions, although the PDMP states otherwise. The patient was evaluated by hospice [facility]. She is not hospice appropriate. The patient has used all her rehab days and was actually discharged from rehab secondary to not participating and her wish is to go home with Home Health. This has been discussed with the daughter through social service agency director who was less receptive to her going back home with Home Health. She is in co-pay days for her rehab, but again, the patient who is of sound mind wants to be discharged back home with Home Health. 2. Abdominal pain. 3. Myalgias. 4. Paresthesias. 5. Hypertension. 6. Adult failure to thrive. 7. Apparent vaginal bleeding that was assessed by Dr. Calhoun with [facility]. He did his exam and felt like the source of the bleeding appears to be around the vaginal orifice due to her decubitus nature of the tissues from immobility. He recommended to continue to manage her skin conditions and should improve her presentation of vaginal bleeding. 8. Wounds to the legs and around vaginal area secondary to the patient being immobile. She was followed by Wound Care. They recommend that wound care be provided daily, wound cleanse with Vashe and Vashe-moistened gauze and apply to the wound and then cover with 4 x 4 gauze. HOSPITAL COURSE: Briefly, Ms. Lockhart is a 78-year-old morbidly obese female with a history of chronic back pain, knee pain, morbid obesity, osteoarthritis, hypertension, as well as DVT. She is not on any anticoagulation and has not been for some time. She presented to the ED with generalized weakness, body aches and pains all over. She does have a traumatic wound leg to bilateral bradley in the past and is status post debridement of bilateral shins with a split- thickness skin graft. Wound VAC that was placed on August 2018. She was discharged for rehab at that time for 21 days. She had been home less than 48 hours prior to calling 911 and being brought to the ED. In rehab, she continued to be nonambulatory, nonparticipant in rehab and the reason for her discharge she was refusing to eat or get out of bed. Workup in the ED was essentially negative, although her catheter urine specimen returned to be bloody with too-numerous- to-count red blood cells. She was started on Rocephin in the emergency room and admitted for further evaluation and treatment and was followed by Wound Care as well as [facility]. Had long talks with her about her pain medication use. After it was lowered, the patient did become more awake, and alert and more participant. She was evaluated per daughter's request for hospice. She was not hospice appropriate. She is in co-pay days for rehab. This was all discussed briefly with the daughter and per the patient she wishes to return home with her [facility]. VITAL SIGNS: Temperature is 97.5 degrees, heart rate 60 respirations 18, blood pressure 156/74, O2 is 95% on room air. DISCHARGE DIET: Regular. DISCHARGE MEDICATIONS: 1. Melatonin 3 mg p.o. at bedtime. 2. Cranberry 400 mg p.o. at bedtime. 3. Vitamin D3 1000 units p.o. daily. 4. Vitamin E 1000 units p.o. daily. 5. Xylocaine 5% ointment 1 g topical t.i.d. p.r.n. 6. Magnesium 30 mg p.o. daily. 7. MS Contin 15 mg p.o. q.12 hours x20 tablets. 8. Neurontin 100 mg p.o. t.i.d. 9. Neurontin 300 mg p.o. t.i.d. 10. Abernathy 5/325 one each p.o. b.i.d. p.r.n. pain. 11. Robaxin 500 mg p.o. q.6 to q.8 hours p.r.n. pain. FOLLOWUP: Ms. Helms is being discharged back home with home health with [facility]. She wanted to follow up with her primary care provider, Dr. Shay to discuss the amount of use of her pain medications. She can return to the ED or call 911 for any worsening of symptoms. Dictated by JIMI Melgar for Edin Valentino MD cc: MD Shelley José MD
== END 2018-09-24 20:33 | disposition home health service (06) ==
LOC: SUPCPDRO → P.MEDSURG 12:44 → P.ED 12:44 → SUATTDRO 21:28
PROVIDERS: ATTEND Family Medicine
CPT/HCPCS: 71010; 71045; 76830; 80053; 81001; 82948; 83735; 84100; 85025; 87088; 93005; 94761; 96365; 96375; 97163; 99285; A9270; J0696; J1170; J2270; XXXXX

== ENCOUNTER 2018-12-20 17:10 | Inpatient (IN) ==
--- NOTE | 2018-12-20 18:03 | PROVIDER DOCUMENTATION ---
This chart was entered by Margo Noel Scribe, acting as scribe for Deny Mederos MD. HPI-General Adult - General Chief Complaint: Sores/Lesions Stated Complaint: WOUNDS Time Seen by Provider: 12/20/18 17:30 Source: patient, family, EMS Allergies/Adverse Reactions: Patient Allergies Allergy/AdvReac Type Severity Reaction Status Date / Time Sulfa (Sulfonamide Allergy Unknown Unknown Verified 09/19/18 14:40 Antibiotics) Home Medications: Home Medication List Medication Instructions Recorded Confirmed Last Taken Type Cranberry 1 tab PO HS 07/12/18 09/19/18 Unknown History Vitamin E 1 tab PO DAILY 07/12/18 09/19/18 Unknown History Gabapentin [Neurontin] 100 mg PO TID #90 cap 07/19/18 09/19/18 Unknown Rx Magnesium 1 tab PO DAILY #90 tab 07/19/18 09/19/18 Unknown Rx Melatonin 3 mg PO QHS 08/18/18 09/19/18 Unknown History Cholecalciferol (Vitamin D3) 1,000 unit PO DAILY 09/19/18 09/19/18 Unknown History [Vitamin D3] Lidocaine 5% Oint [Xylocaine 5% 1 gm TOP TID PRN 09/19/18 09/19/18 Unknown History Oint] Gabapentin [Neurontin] 300 mg PO TID@0900,1500,2100 cap 09/24/18 Unknown Rx Hydrocodone/APAP 5 mg/325 mg 1 ea PO BID PRN PRN #20 tab 09/24/18 Unknown Rx [[place]-5] Methocarbamol [Robaxin] 500 mg PO Q6-8H PRN PRN #0 09/24/18 09/19/18 Unknown Rx Morphine E.r. [Ms Contin] 15 mg PO Q12H #20 tab 09/24/18 Unknown Rx Hydrocodone/APAP 5 mg/325 mg 1 - 2 tab PO Q6H PRN PRN #18 tab 10/13/18 Unknown Rx [[place]-5] - History of Present Illness -Gen Adult Nature of Presenting Problems: 78 y/o female presents to ED with worsening decubitus ulcer surrounding anus. Family of pt reports she has tried to see PCP, but nothing has been done. Pt is bedridden and home health is involved. Pt is alert and oriented. Location of Pain/Injury: reports: genitalia, other (decubitus ulcer surrounding anus) Pain Radiation: reports: no radiation, buttocks, vaginal Quality of Pain: reports: aching Severity: reports: moderate, severe Onset/Duration: reports: unsure Timing: reports: still present Context/Activities at Onset: reports: none Modifying Factors: worse with: palpation Associated Symptoms: reports: arm pain, muscle aches, other (decubitus ulcer surrounding anus) Similar Symptoms Previously?: No Recently seen or treated by another doctor?: No Review of Systems - Adult - REVIEW OF SYSTEMS - ADULT Constitutional: denies: chills, fever Eyes: reports: no symptoms reported Ears, Nose, Mouth & Throat: reports: no symptoms reported Cardiovascular: denies: chest pain, palpitations Respiratory: denies: cough, shortness of breath Gastrointestinal: denies: abdominal pain, diarrhea, nausea, vomiting Genitourinary: reports: no symptoms reported Musculoskeletal: denies: back pain, joint pain Integumentary: reports: other (decubitus ulcer surrounding anus). denies: hives Neurological: denies: dizziness/vertigo, seizure Psychiatric: reports: no symptoms reported Endocrine: reports: no symptoms reported Hematologic/Lymphatic: reports: no symptoms reported Allergic/Immunologic: reports: no symptoms reported All Other Systems: Reviewed and Negative Past History - Adult - PAST MEDICAL HISTORY-ADULT Review of Records: reports: Old Records Reviewed, Nursing Assessment Review, Medications Reviewed Major Childhood Illnesses: reports: denies history Respiratory: reports: COPD, other (home 02) Gastrointestinal: reports: denies history Musculoskeletal: reports: chronic pain, intervertebral disc disease Neurological: reports: denies history Other Conditions: reports: cataract/glaucoma - PRIOR SURGERIES/PROCEDURES Surgical/Procedure History: reports: appendectomy, BTL, tonsillectomy, orthopedic (extremity) (knee), back/neck, other (cataract removal; lasik) - IMMUNIZATION STATUS Childhood Immunizations: See Nurse Assessment Flu Vaccine: See Nurse Assessment - FAMILY HISTORY Family History: reviewed, not pertinent - SOCIAL HISTORY Smoking: quit greater than 1 year Substance Use: none/never Alcohol Use Frequency: never Living Situation: family Physical Exam-General - PHYSICAL EXAM-ADULT Initial Vital Signs Reviewed: Yes - CONSTITUTIONAL General Appearance: appears well, alert, no apparent distress - EYES Eyes: PERRL/EOMI, pink conjunctivae - HEAD, EARS, NOSE, MOUTH & THROAT HENMT: normocephalic/atraumatic, moist mucous membranes, normal ENT inspection - RESPIRATORY Respiratory: chest non-tender, lungs clear, normal breath sounds - CARDIOVASCULAR Cardiovascular: normal peripheral pulses, regular rate, rhythm - SKIN Integumentary: normal color, warm/dry, decubitus (stage 2 decubitus ulcer that is 12 inches in diameter with associated erythema, induration, and tenderness) - NEUROLOGIC Neurologic: grossly normal - PSYCHIATRIC Psych/Mental Status: normal mood/affect, normal thought content, normal thought process, oriented x 3 Progress - PLAN OF CARE/RESULTS Progress/Plan/Lab Results: Vital Signs - 8 hr 12/20/18 17:11 Temperature 98.8 F Pulse Rate 89 Respiratory Rate 18 Blood Pressure 128/62 O2 Sat by Pulse Oximetry 90 L Result Diagrams: 12/20/18 17:50 12/20/18 17:50 Departure - Departure Date of Disposition Decision: 12/20/18 Time of Disposition Decision: 18:42 DIAGNOSIS: Decubitus ulcer, stage 2 with infection, Generalized weakness, Chronic pain, Bedridden Disposition: ADMITTED INPATIENT 09 Certified Medical Emergency: Emergent Condition: Stable Referrals and Follow-Ups: None,PCP [Primary Care Provider] - - Critical Care Note This patient required my direct & personal management of CC.: No Attestation - Physician/ PATRICIA Attestation Patient care was provided by Advanced Practice Provider:: No The physician spent face to face time with patient:: Yes Advanced Practice Provider documentation review:: Supervising physician onsite and consulted in the evaluation and care of this patient. The physician did have a face to face encounter with the patient. This chart was documented by the indicated scribe, (Margo Noel Scribcarlos) and accurately reflects the services I performed and decisions made by me, Deny Mederos MD, as attested by the provider's signature.
[2018-12-20 18:09] LABS: BASO# 0.05 X1000 (0.0-0.2); BASO% 0.5 % (0.0-0.8); EOS% 5.4 % (0.0-10.0); HEMOGLOBIN 13.3 g/dL (12.0-16.0); IMM GRAN# 0.01 X1000 (0.0-0.04); IMM GRAN% 0.1 % (0.0-0.5); LYMPH# 1.54 X1000 (1.2-3.4); LYMPH% 16.7 % (20.5-51.1); MCH 27.7 PG (27-31); MCHC 31.7 g/dL (33-37); MCV 87.5 FL (81-99); MONO# 1.15 X1000 (0.11-0.59); MONO% 12.5 % (1.7-9.3); MPV 11.2 FL (7.4-10.4); NEUT# 5.97 X1000 (1.4-6.5); NEUT% 64.8 % (42.2-75.2); PLT 289 X1000 (130-400); RDW 17.1 % (11.5-14.5); WBC 9.22 X1000 (4.8-10.8)
[2018-12-20] MEDS ORDERED: DEMEROL IV ONE (18:09)
[2018-12-20] MEDS ORDERED: PHENERGAN IV ONE (18:10)
[2018-12-20] MEDS ORDERED: SODIUM CHLORIDE 0.9% INJ ONE (18:10)
[2018-12-20 18:31] LABS: AGAP 13; ALKALINE PHOSPHATASE 91 U/L (32-104); BUN 15 mg/dL (8-22); CALCIUM 8.6 mg/dL (8.8-10.2); CHLORIDE 101 mmol/L (98-107); COSMO 274; CREATININE 0.9 mg/dL (0.5-0.9); ESTIMATED GFR > 60; GLUCOSE 94 mg/dL (70-104); GOT 17 U/L (10-30); GPT 10 U/L (10-36); POTASSIUM 4.3 mmol/L (3.5-5.1); SODIUM 137 mmol/L (136-145); TCO2 23 mmol/L (25-35)
[2018-12-20 19:00] LABS: URINE SOURCE CATH
[2018-12-20 19:09] LABS: BILIRUBIN URINE NEGATIVE (NEGATIVE); BLOOD URINE 4+ (NEGATIVE); CLARITY SL. CLOUDY (CLEAR); COLOR YELLOW; GLUCOSE URINE NEGATIVE (NEGATIVE); KETONE URINE NEGATIVE (NEGATIVE); LEUKOCYTES URINE 1+ (NEGATIVE); NITRITE URINE POSITIVE (NEGATIVE); PROTEIN URINE TRACE mg/dL (NEGATIVE); UROBILINOGEN URINE NORMAL
[2018-12-20 19:10] LABS: URINE BACTERIA 1+ /HFP; URINE EPITHELIAL CELLS <10 /HPF (<10); URINE RBC TNTC /HPF (<10)
[2018-12-20] MEDS ORDERED: NS 1,000 ML IV ONE (21:10)
[2018-12-20] MEDS ORDERED: CLINDAMYCIN 900 MG/D5W 900 MG/50 ML IVPB IV ONE (21:10)
[2018-12-20] MEDS ORDERED: NORCO-10 PO PRN (22:15)
[2018-12-20] MEDS: DUONEB (A & A) INH SCH (22:23)
[2018-12-21] MEDS: DUONEB (A & A) INH SCH ×5 (03:55→19:35)
[2018-12-21] MEDS ORDERED: TYLENOL PO PRN (07:01)
[2018-12-21] MEDS ORDERED: ZOFRAN IV PRN (07:01)
[2018-12-21] MEDS ORDERED: ROBAXIN PO PRN (08:34)
[2018-12-21] MEDS: CLINDAMYCIN 600 MG/D5W 600 MG/50 ML IVPB IV SCH ×2 (09:01→15:39)
[2018-12-21] MEDS: VITAMIN D PO SCH (09:02)
[2018-12-21] MEDS: NEURONTIN PO SCH ×3 (09:02→22:09)
[2018-12-21] MEDS: SLOW-MAG PO SCH (09:02)
[2018-12-21] MEDS: VITAMIN E PO SCH (09:02)
[2018-12-21] MEDS: MORPHINE IR PO PRN ×2 (09:03→15:39)
--- NOTE | 2018-12-21 09:22 | HISTORY AND PHYSICAL ---
PRIMARY CARE PHYSICIAN: None. CHIEF COMPLAINT: Worsening decubitus around her anus. HISTORY OF PRESENTING ILLNESS: This is a 78-year-old, female who presents to [facility] ER with complaints of a worsening decubitus ulcer surrounding her anus. She has been bedridden and is followed by home health but states that she was about to be discharged from home health due to not having a primary care physician. It is noted that the family told the attending that her primary care physician was Dr. Shay and that she wanted her to come in to be seen but family could not get the patient to the doctor due to her being bedridden so she was sent to the emergency room. On arrival, was noted to have a stage 2 decubitus that was 12 inches in diameter with some associated erythema, induration, and tenderness. Her white blood cell count was normal at 9.22. Her urinalysis did show positive nitrites, 1+ white blood cells, 1+ bacteria, and so she was admitted for further evaluation and treatment. PAST MEDICAL HISTORY: Chronic back pain and knee pain, hypertension, chronic constipation secondary to opioid use, history of DVT and PE but has been off of anticoagulation for some time now, traumatic wounds to bilateral shins and was status post debridement with split-thickness skin graft and a wound VAC that was placed on 08/18/2018, with that treatment completed. PAST SURGICAL HISTORY: Bilateral knee replacement, bilateral LASIK surgery, bilateral tubal ligation, appendectomy, tonsillectomy, and back surgery x5. FAMILY HISTORY: Reviewed and noncontributory. SOCIAL HISTORY: Currently lives with family. Has home health. Denied any tobacco, alcohol, or illicit drug use. ALLERGIES: Sulfa. HOME MEDICATIONS: Vitamin D3 1000 units p.o. daily, cranberry 400 mg 1 p.o. at bedtime, Neurontin 300 mg p.o. t.i.d., magnesium 30 mg p.o. daily, melatonin 3 mg p.o. at bedtime, Robaxin 500 mg p.o. q.6-8 hours p.r.n., vitamin E 1000 units p.o. daily. LABORATORY DATA: Showed a white blood cell count of 9.22, hemoglobin 13.3, hematocrit 42, platelets 289,000. Sodium 137, potassium 4.3, chloride 101, CO2 of 23, BUN of 15, creatinine 0.9, glucose 94, plasma lactate of 1.3. Urinalysis showed positive nitrites, 1+ white blood cells, 1+ bacteria. REVIEW OF SYSTEMS: She denied any fever, chills, blurred vision, dizziness, chest pain, coughing, shortness of breath. She denied any abdominal pain, constipation, diarrhea, or burning or hurting with urination. She does have pain to the wound surrounding her anus. Denied any burning or hurting with urination. PHYSICAL EXAMINATION: VITAL SIGNS: On arrival, she had a temperature of 98.8 degrees, pulse 89, respirations 18, blood pressure 128/62, saturating 90% on room air. Currently saturating 98% on 2 L via nasal cannula. GENERAL: This is a 78-year-old, female who is sitting up in the bed and answers questions appropriately. HEENT: Normocephalic, atraumatic. Normal ENT inspection. Oropharynx and nares are clear. Eyes: Pupils are equal, round, reactive to light and accommodation. Extraocular movements are intact. NECK: Normal inspection. Normal range of motion. LUNGS: Clear to auscultation bilaterally with equal lung expansion and chest wall movement. HEART: With regular rate and rhythm. No murmurs, rubs, or gallops. ABDOMEN: Soft, nontender, nondistended. Bowel sounds are present x4 quadrants. SKIN: She is noted to have a stage 2 decubitus ulcer surrounding her anus that is approximately 12 inches in diameter with associated erythema, induration, and tenderness. MUSCULOSKELETAL: She has 5/5 strength to upper extremities, 3/5 strength to lower extremities. NEUROLOGICAL: The cranial nerves 2-12 appear grossly intact. ASSESSMENT: 1. Stage 2 decubitus ulcer with infection. 2. Urinary tract infection. 3. Hypertension, history of. 4. Chronic pain. PLAN: She was admitted to the medical unit at [facility], placed on O2 per protocol, telemetry, and has an indwelling Michaud catheter. We will consult wound care. Blood cultures x2 are pending. We will set up a urine culture. Place her on Rocephin 1 gram IV q.24, clindamycin 600 IV q.8, DuoNeb q.4 hours. Continue home medications as previously identified. Recheck CBC and BMP in the a.m. Wound culture is also pending. Further orders after seen by attending. Dictated by JIMI Dumont for Edin Valentino MD cc: JIMI Dumont MD Hiteshri S. Bhavsar, MD
[2018-12-21] MEDS: ROCEPHIN 1 GM in NS 50 ML IV SCH (09:53)
[2018-12-21] MEDS ORDERED: NS 500 ML ONE (10:13)
[2018-12-21] MEDS ORDERED: CALMOSEPTINE OINTMENT TOP ONE (16:39)
--- NOTE | 2018-12-21 18:49 | HISTORY AND PHYSICAL ---
ADDENDUM: Patient seen and examined by myself. Full note dictated and discussed with nurse practitioner. Patient presented to the hospital secondary to intractable pain. Her son notes that she has not been out of bed in quite some time. States that she has extreme pain with any type of movement. They do have a nurse that stays with her at home. We are going to admit her to the hospital. Get wound therapy involved for her sacral decubitus. We will place her on antibiotics for her presumed urinary tract infection and await culture. We will start morphine for pain. cc: Edin Valentino MD
[2018-12-21] MEDS: CRANBERRY PO SCH (22:08)
[2018-12-21] MEDS: MELATONIN PO SCH (22:08)
[2018-12-22] MEDS: MORPHINE IR PO PRN ×2 (02:35→12:40)
[2018-12-22] MEDS: CLINDAMYCIN 600 MG/D5W 600 MG/50 ML IVPB IV SCH (02:36)
[2018-12-22] MEDS: DUONEB (A & A) INH SCH ×7 (02:59→22:48)
[2018-12-22 06:29] LABS: BASO# 0.05 X1000 (0.0-0.2); BASO% 0.7 % (0.0-0.8); EOS# 0.54 X1000 (0.0-0.7); EOS% 7.8 % (0.0-10.0); HEMATOCRIT 44.3 % (37.0-47.0); HEMOGLOBIN 13.4 g/dL (12.0-16.0); IMM GRAN# 0.01 X1000 (0.0-0.04); IMM GRAN% 0.1 % (0.0-0.5); LYMPH% 23.2 % (20.5-51.1); MCH 27.6 PG (27-31); MCHC 30.2 g/dL (33-37); MCV 91.3 FL (81-99); MONO% 14.5 % (1.7-9.3); MPV 11.5 FL (7.4-10.4); NEUT# 3.69 X1000 (1.4-6.5); NEUT% 53.7 % (42.2-75.2); PLT 159 X1000 (130-400); RBC 4.85 XMIL (4.2-5.4); RDW 17.6 % (11.5-14.5); WBC 6.89 X1000 (4.8-10.8)
[2018-12-22 06:40] LABS: AGAP 13; BUN 14 mg/dL (8-22); CALCIUM 8.4 mg/dL (8.8-10.2); CHLORIDE 103 mmol/L (98-107); COSMO 274; CREATININE 0.8 mg/dL (0.5-0.9); ESTIMATED GFR > 60; GLUCOSE 119 mg/dL (70-104); POTASSIUM 4.2 mmol/L (3.5-5.1); SODIUM 136 mmol/L (136-145); TCO2 21 mmol/L (25-35)
[2018-12-22] MEDS: ROCEPHIN 1 GM in NS 50 ML IV SCH (08:57)
[2018-12-22] MEDS: VITAMIN E PO SCH (08:58)
[2018-12-22] MEDS: SLOW-MAG PO SCH (08:59)
[2018-12-22] MEDS ORDERED: MS CONTIN PO SCH (09:00)
[2018-12-22] MEDS: NEURONTIN PO SCH ×3 (09:00→23:04)
[2018-12-22] MEDS: VITAMIN D PO SCH (09:00)
[2018-12-22] MEDS: CALMOSEPTINE OINTMENT TOP SCH ×3 (09:53→16:23)
[2018-12-22 09:59] LABS: ANISOCYTOSIS 1+; LYMPHS 22 % (21-51); MONO 13 % (1-9); SEGS 65 % (42-75)
--- NOTE | 2018-12-22 18:46 | PROGRESS NOTE ---
DATE: 12/22/2018 SUBJECTIVE: Patient still has complaints of significant constant, persistent, unchanged pain. She does seem mildly invested in taking pain medications as well as being completely pain free. Discussed with her and the family that is not really an option. After several attempts at asking a question, it does appear as though the MSIR is helping but just does not last long enough. PHYSICAL EXAMINATION: Vital Signs: Temperature 97.9, pulse 82, respiratory rate 18, BP 120/59. General: Patient is a morbidly obese female who is in no respiratory distress. She refuses to move or be moved. HEENT: Normocephalic. Neck: Supple. Cardiovascular: Regular rate. Chest: Clear. Abdomen: Obese, nondistended. Extremities: She has no edema. She has intentionally limited movement. ASSESSMENT: 1. Stage II decubitus ulcer, currently growing gram-negative rods. 2. Urinary tract infection. Currently urine culture is negative. 3. Chronic pain. PLAN: 1. We will continue to adjust her pain medication and will add MS ER and allow her to continue the MSIR . cc: Edin Valentino MD MTDD
[2018-12-22] MEDS: MELATONIN PO SCH (23:04)
[2018-12-22] MEDS: CRANBERRY PO SCH (23:04)
[2018-12-23] MEDS: DUONEB (A & A) INH SCH ×5 (03:00→16:29)
[2018-12-23] MEDS ORDERED: TYLENOL PO PRN (08:26)
[2018-12-23] MEDS ORDERED: ZOFRAN IV PRN (08:26)
[2018-12-23] MEDS ORDERED: SOLU-MEDROL IV SCH (08:30)
[2018-12-23] MEDS: ROCEPHIN 1 GM in NS 50 ML IV SCH (09:00)
[2018-12-23] MEDS: NEURONTIN PO SCH ×3 (09:35→20:45)
[2018-12-23] MEDS: VITAMIN D PO SCH (09:35)
[2018-12-23] MEDS: VITAMIN E PO SCH (09:35)
[2018-12-23] MEDS: SLOW-MAG PO SCH (09:36)
[2018-12-23] MEDS: CALMOSEPTINE OINTMENT TOP SCH ×2 (09:38→13:21)
[2018-12-23] MEDS: MS CONTIN PO SCH ×2 (10:03→20:46)
[2018-12-23] MEDS: MORPHINE IR PO PRN (10:22)
--- NOTE | 2018-12-23 18:56 | PROGRESS NOTE ---
DATE: 12/23/2018 SUBJECTIVE: The patient had an episode last night where she became a little more sedated and confused. We held her morphine ER 30 mg and her symptoms appear to be improved this morning. She is awake, alert, in no distress. OBJECTIVE: Temperature 98, pulse 85, respiratory 18, BP 91/42.General: Patient is awake. She is in no respiratory distress. HEENT: Normocephalic. Neck: Supple. Cardiovascular: Regular rate. Chest: Clear. Abdomen: Soft, obese. Extremities: Moves all extremities although patient attempts to refuse any movement secondary to pain. ASSESSMENT: 1. Stage II decubitus ulcer with gram-negative rods on culture. 2. Urinary tract infection appears to be clear thus far on urine culture. 3. Hypertension. 4. Chronic pain. The patient notes that she cannot move anything at all ever without having severe excruciating and significant pain. We are going to decrease her morphine ER to 15 mg and see how she does with this. Further orders as needed. cc: Edin Valentino MD
[2018-12-23] MEDS: CRANBERRY PO SCH (20:46)
[2018-12-23] MEDS: MELATONIN PO SCH (20:46)
[2018-12-24] MEDS: DUONEB (A & A) INH SCH ×7 (04:06→22:53)
[2018-12-24] MEDS: CALMOSEPTINE OINTMENT TOP SCH ×4 (09:43→17:40)
[2018-12-24] MEDS: MS CONTIN PO SCH ×2 (09:49→20:16)
[2018-12-24] MEDS: NEURONTIN PO SCH ×3 (09:50→20:16)
[2018-12-24] MEDS: SLOW-MAG PO SCH (09:50)
[2018-12-24] MEDS: DIFLUCAN PO SCH (09:50)
[2018-12-24] MEDS: VITAMIN E PO SCH (09:50)
[2018-12-24] MEDS: LEVAQUIN PO SCH (09:51)
[2018-12-24] MEDS: VITAMIN D PO SCH (09:51)
[2018-12-24] MEDS: MORPHINE IR PO PRN (16:02)
[2018-12-24] MEDS ORDERED: ATIVAN IV ONE (17:48)
--- NOTE | 2018-12-24 18:57 | PROGRESS NOTE ---
DATE: 12/24/2018 SUBJECTIVE: Patient has no new complaints, although she still states that she is hurting all over any time she moves, and sometimes even before she moves. Does note the pain medication seems to help. OBJECTIVE: Vital Signs: Temperature 98 degrees, pulse 72, respiratory rate 18, BP 129/53. General: Patient is awake, alert. She is a morbidly obese female who is in no respiratory distress. HEENT: Normocephalic. Neck: Supple. Cardiovascular: Regular rate. Chest: Clear. Abdomen: Soft, obese. Extremities: No edema. ASSESSMENT: 1. Klebsiella urinary tract infection. 2. Klebsiella stage II decubitus. 3. Morbid obesity. 4. Chronic pain. 5. Hypertension. PLAN: We will continue patient in the hospital. Switch her to Levaquin as both infections are sensitive to Levaquin. Hopefully, everything can be set up with Hospice over the next day or two, and she can discharge home for pain control and end of life measures. cc: Edin Valentino MD
[2018-12-24] MEDS: MELATONIN PO SCH (20:17)
[2018-12-24] MEDS: CRANBERRY PO SCH (20:17)
[2018-12-25] MEDS: DUONEB (A & A) INH SCH ×3 (04:28→11:43)
[2018-12-25] MEDS: VITAMIN E PO SCH (09:22)
[2018-12-25] MEDS: SLOW-MAG PO SCH (09:22)
[2018-12-25] MEDS: MS CONTIN PO SCH (09:22)
[2018-12-25] MEDS: VITAMIN D PO SCH (09:22)
[2018-12-25] MEDS: NEURONTIN PO SCH (09:23)
[2018-12-25] MEDS: LEVAQUIN PO SCH (09:23)
[2018-12-25] MEDS: DIFLUCAN PO SCH (09:23)
[2018-12-25] MEDS: MORPHINE IR PO PRN (12:21)
[2018-12-25 12:26] VITALS: BP 112/44
[2018-12-25] MEDS: CALMOSEPTINE OINTMENT TOP SCH ×2 (14:12)
--- NOTE | 2018-12-25 14:25 | DISCHARGE SUMMARY ---
ADMISSION DATE: 12/20/2018 DISCHARGE DATE: PRIMARY CARE PHYSICIAN: Listed as none. ADMISSION DIAGNOSES: 1. An infected stage 2 decubitus ulcer around her anus. 2. Urinary tract infection. 3. Hypertension, history of. 4. Chronic pain. DISCHARGE DIAGNOSES: 1. Infected stage 2 decubitus around anus with Pseudomonas aeruginosa. 2. Chronic obstructive pulmonary disease with home oxygen use. 3. Pseudomonas aeruginosa urinary tract infection. 4. Hypertension, history of. 5. Chronic pain. SUMMARY OF FINDINGS: This is a 78-year-old female, who presented to the emergency room with complaints of a worsening decubitus ulcer surrounding her anus. Has been bedridden and followed by home health, but states she was about to be discharged from home health due to not having a primary care physician. The family told the attending that her primary care physician was Dr. Shay, and that she wanted her to come in to see her, but the family could not get the patient to the doctor due to her being bedridden, so they sent her to the emergency room. She was noted to have a 12-inch in diameter stage 2 decubitus to her anus with surrounding erythema, induration, and tenderness. We obtained a wound culture that grew out Pseudomonas aeruginosa. Her urinalysis also had positive nitrites, 1+ white blood cells, 1+ bacteria, and grew out a Pseudomonas aeruginosa urine. She was admitted, placed on O2, and she uses O2 at home for her COPD. We consulted Wound Care. We started her on IV antibiotics, DuoNeb. Discussed discharge planning at length with family and the decision was made for her to go home with hospice. She has been being treated appropriately for her UTI and her wound infection, so it is now felt that she can safely go home with hospice care today. DISCHARGE MEDICATIONS: Include vitamin D3 of 1000 units p.o. daily. Cranberry 400 mg p.o. at bedtime. Gabapentin 300 mg p.o. t.i.d. Levaquin 500 mg p.o. daily, #7, with no refills. Magnesium 30 mg p.o. daily. Melatonin 3 mg p.o. at bedtime. Methocarbamol 500 mg p.o. q.6-8 h. p.r.n. MS Contin 15 mg p.o. q.12 h., #30, with no refills. Morphine IR 15 mg p.o. q.4 h. p.r.n., #30, with no refills. Vitamin E 1000 units p.o. daily. COORDINATION TIME: A 35-minute discharge. Dictated by JIMI Dumont for Edin Valentino MD cc: JIMI Dumont MD
--- NOTE | 2018-12-26 02:56 | DISCHARGE SUMMARY ---
ADMISSION DATE: 12/20/2018 DISCHARGE DATE: 12/25/2018 ADDENDUM: Patient seen and examined by myself. Full note dictated and discussed with nurse practitioner. On discharge, patient is awake, alert. She is in no respiratory distress. She is oriented x3. She does refuse most movements. She lies in the bed and does not voluntarily roll over or move. Certainly would prefer patient to go to rehab and likely to long-term retirement care. However, patient declines this option. We will discharge her home with hospice although this is not the best option as noted for her given how difficult it is for her to move. She is bedridden due to pain. She does have a history of COPD. Currently has Pseudomonas in her urine as well as her wound. We are going to discharge her home as noted with hospice for pain control, COPD exacerbation. She has had weight loss as well. Again, would certainly prefer Ms. Lockhart to go to rehab. We discussed this with her personally for approximately 25 minutes on date of discharge, and again as noted she declined. cc: Edin Valentino MD
== END 2018-12-25 13:40 | disposition hospice, home (50) | DRG 593 ==
LOC: P.ED 17:10 → P.MEDSURG 20:11
PROVIDERS: ATTEND Family Medicine